=== PATIENT | female | born 1955 | race Two or more races ===

== ENCOUNTER 2022-03-31 06:44 | Emergency (ER) | payer MEDICARE, OTHER ==
[~2022-03-31] VITALS: Ht 154.9 cm; Wt 49.1 kg
[2022-03-31] MEDS ORDERED: morphine 4 MG/ML inj SYRINge IV PRN (06:50)
[2022-03-31] MEDS ORDERED: ondansetron/PF 4mg/2ml inj IV ONE (06:50)
[2022-03-31] MEDS ORDERED: normal saline 1000ML IV soln IVB ONE (06:50)
[2022-03-31 06:53] VITALS: BP 167/86
[2022-03-31 07:42] LABS: CLARITY,URINE CLEAR (Clear); COLOR,URINE BROWN (Yellow); GLUCOSE, URINE NEGATIVE (Neg); KETONES,URINE TRACE mg/dl (Neg); LEUKOCYTE ESTERASE ,URINE TRACE (Neg); OCCULT BLOOD,URINE NEGATIVE (Neg); PH,URINE 5.5 (4.8-8.0); PROTEIN,URINE 30 mg/dl (Neg)
[2022-03-31 07:44] LABS: BASOPHILS # (AUTO) 0.1 X10'3 (0-0.2); BASOPHILS % (AUTO) 1.1 % (0-1); EOSINOPHILS % (AUTO) 0.7 % (0-6); HEMATOCRIT 39.3 % (35.0-45.0); HEMOGLOBIN 12.8 g/dl (12.0-16.0); LYMPHOCYTES # (AUTO) 2.1 X10'3 (1.1-4.8); LYMPHOCYTES % (AUTO) 38.2 % (21-51); MEAN CORPUSCULAR HEMOGLOBIN 26.3 PG (27.0-31.0); MEAN CORPUSCULAR HGB CONC 32.6 g/dL (33.0-36.5); MEAN CORPUSCULAR VOLUME 80.8 FL (78-98); MEAN PLATELET VOLUME 9.7 FL (7.4-10.4); MONOCYTES # (AUTO) 0.3 X10'3 (0-0.9); MONOCYTES % (AUTO) 6.4 % (2-12); NEUTROPHILS # (AUTO) 2.9 X10'3 (1.8-7.7); NEUTROPHILS % (AUTO) 53.6 % (42-75); PLATELET COUNT 263 X10'3 (140-440); RED BLOOD COUNT 4.87 X10'6 (4.20-5.60); RED CELL DISTRIBUTION WIDTH 16.8 % (11.5-14.5); WHITE BLOOD COUNT 5.4 X10'3 (4.5-11.0)
[2022-03-31 07:51] LABS: UA COLLECTION TYPE CLN CATCH MIDSTREAM
[2022-03-31 07:56] LABS: MUCUS STRANDS MANY /LPF (Neg); NITRITES, URINE NEGATIVE (Neg); SQUAMOUS EPITHELIAL CELL,UR MANY /LPF (FEW)
[2022-03-31 07:59] LABS: TRANSITIONAL EPI CELLS,URINE FEW /HPF
[2022-03-31 08:00] LABS: BACTERIA,URINE FEW /HPF (Neg); RBC,URINE 0-2 /HPF (0-2)
[2022-03-31 08:04] LABS: ALANINE AMINOTRANSFERASE 13 U/L (12-78); ALBUMIN 4.3 G/DL (3.4-5.0); ALBUMIN/GLOBULIN RATIO 1.1 (1.1-1.5); ALKALINE PHOSPHATASE 71 IU/L (46-116); ANION GAP 13 (8-16); ASPARTATE AMINO TRANSFERASE 17 U/L (10-37); BILIRUBIN,TOTAL 0.3 MG/DL (0.1-1.0); BLOOD UREA NITROGEN 18 MG/DL (7-18); BUN/CREATININE RATIO 24.3 (6.6-38.0); CALCIUM 9.5 MG/DL (8.5-10.1); CHLORIDE 107 MMOL/L (99-107); CREATININE 0.74 MG/DL (0.40-0.90); GLUCOSE 121 MG/DL (70-104); LIPASE 86 U/L (73-393); SODIUM 144 MMOL/L (135-145); TOTAL CARBON DIOXIDE 24.1 MMOL/L (24-32); TOTAL PROTEIN 8.2 G/DL (6.4-8.2); eGFR 79 ML/MIN
[2022-03-31] MEDS ORDERED: POTASSIUM BICARB 20meq eff tab 20 MEQ TABLET.EFF PO ONE ×2 (08:15)
== END 2022-03-31 09:07 | disposition home or self-care (01) ==
LOC: ER 06:46
DX: E87.6 Hypokalemia (principal); R10.32 Left lower quadrant pain; F31.9 Bipolar disorder, unspecified; Z88.5 Allergy status to narcotic agent
CPT/HCPCS: 36415; 74176; 80053; 81001; 83690; 85025; 99284

== ENCOUNTER 2022-04-07 20:45 | Emergency (ER) | payer MEDICARE, OTHER ==
[~2022-04-07] VITALS: Ht 154.9 cm; Wt 50.0 kg
[2022-04-07] MEDS ORDERED: OLANZapine 2.5MG tablet PO STA (21:08)
[2022-04-07] MEDS ORDERED: QUEtiapine 25mg tablet PO STA (21:08)
[2022-04-07 21:32] LABS: CLARITY,URINE SLIGHTLY CLOUDY (Clear); GLUCOSE, URINE 100 mg/dl (Neg); KETONES,URINE 15 mg/dl (Neg); LEUKOCYTE ESTERASE ,URINE TRACE (Neg); NITRITES, URINE NEGATIVE (Neg); OCCULT BLOOD,URINE NEGATIVE (Neg); PH,URINE 6.5 (4.8-8.0); PROTEIN,URINE 100 mg/dl (Neg); UROBILINOGEN,URINE >=8.0 E.U/dL (0.2-1.0)
[2022-04-07 21:36] LABS: COLOR,URINE DARK YELLOW (Yellow); UA COLLECTION TYPE CLN CATCH MIDSTREAM
[2022-04-07 21:40] LABS: BACTERIA,URINE FEW /HPF (Neg); RBC,URINE 0-2 /HPF (0-2); SQUAMOUS EPITHELIAL CELL,UR FEW /LPF (FEW)
[2022-04-07 21:41] LABS: AMORPHOUS PHOSPHATES 1+; CAL OXALATE CRYSTALS 1+ /HPF (NEGATIVE); FINE GRANULAR CAST 0-3 /LPF (NEGATIVE); MUCUS STRANDS FEW /LPF (Neg); TRANSITIONAL EPI CELLS,URINE FEW /HPF
[2022-04-07 21:48] LABS: URINE AMPHETAMINE SCREEN NEGATIVE (Neg); URINE BARBITUATE SCREEN NEGATIVE (Neg); URINE BENZODIAZEPINES SCREEN NEGATIVE (Neg); URINE CANNABINOID SCREEN POSITIVE (Neg); URINE COCAINE SCREEN NEGATIVE (Neg); URINE METHADONE SCREEN NEGATIVE (Neg); URINE OPIATE SCREEN NEGATIVE (Neg); URINE PHENCYCLIDINE SCREEN NEGATIVE (Neg)
[2022-04-07 21:49] LABS: BASOPHILS # (AUTO) 0.1 X10'3 (0-0.2); BASOPHILS % (AUTO) 1.2 % (0-1); EOSINOPHILS % (AUTO) 0.5 % (0-6); HEMATOCRIT 39.1 % (35.0-45.0); HEMOGLOBIN 12.7 g/dl (12.0-16.0); LYMPHOCYTES # (AUTO) 1.9 X10'3 (1.1-4.8); LYMPHOCYTES % (AUTO) 36.9 % (21-51); MEAN CORPUSCULAR HEMOGLOBIN 26.5 PG (27.0-31.0); MEAN CORPUSCULAR HGB CONC 32.4 g/dL (33.0-36.5); MEAN CORPUSCULAR VOLUME 81.5 FL (78-98); MEAN PLATELET VOLUME 9.5 FL (7.4-10.4); MONOCYTES # (AUTO) 0.3 X10'3 (0-0.9); MONOCYTES % (AUTO) 5.3 % (2-12); NEUTROPHILS # (AUTO) 2.9 X10'3 (1.8-7.7); NEUTROPHILS % (AUTO) 56.1 % (42-75); PLATELET COUNT 222 X10'3 (140-440); RED CELL DISTRIBUTION WIDTH 18.7 % (11.5-14.5); WHITE BLOOD COUNT 5.2 X10'3 (4.5-11.0)
[2022-04-07] MEDS ORDERED: cephalexin 250mg capsule PO SCH (22:00)
[2022-04-07 22:02] LABS: ALANINE AMINOTRANSFERASE 29 U/L (12-78); ALBUMIN 4.1 G/DL (3.4-5.0); ALBUMIN/GLOBULIN RATIO 1.1 (1.1-1.5); ALKALINE PHOSPHATASE 70 IU/L (46-116); ANION GAP 11 (8-16); ASPARTATE AMINO TRANSFERASE 20 U/L (10-37); BILIRUBIN,TOTAL 0.7 MG/DL (0.1-1.0); BLOOD UREA NITROGEN 13 MG/DL (7-18); BUN/CREATININE RATIO 18.3 (6.6-38.0); CALCIUM 9.6 MG/DL (8.5-10.1); CHLORIDE 106 MMOL/L (99-107); CREATININE 0.71 MG/DL (0.40-0.90); GLUCOSE 106 MG/DL (70-104); POTASSIUM 3.3 MMOL/L (3.5-5.1); SODIUM 143 MMOL/L (135-145); TOTAL CARBON DIOXIDE 26.5 MMOL/L (24-32); TOTAL PROTEIN 7.8 G/DL (6.4-8.2); eGFR 83 ML/MIN
[2022-04-07 22:18] LABS: ETHANOL < 0.010 GM/DL (0.0-0.010)
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
--- NOTE | 2022-04-07 23:20 | NUR ---
PT takes HS medication without issue.
[2022-04-07 23:31] LABS: ANISOCYTOSIS 2+; PLATELET ESTIMATE NORMAL
[2022-04-08] MEDS ORDERED: LORazepam 1 MG tablet PO ONE (02:00)
--- NOTE | 2022-04-08 02:18 | NUR ---
Pt states she is anxious and cannot sleep, 2 mg ativan PO given
--- NOTE | 2022-04-08 04:00 | NUR ---
PT ASLEEP ON r SIDE RESPIRATIONS EVEN AND UNLABORED
--- NOTE | 2022-04-08 05:27 | NUR ---
PACKED FAXED TO [facility]
--- NOTE | 2022-04-08 08:00 | NUR ---
Patient calm and asleep. Patient refused breakfast. No complains. Patient not interacting or wanting to talk to Staff.
--- NOTE | 2022-04-08 11:02 | NUR ---
[facility] is at bedside evaluating the patient.
--- NOTE | 2022-04-08 12:00 | NUR ---
Patient refused lunch and went back to sleep.
--- NOTE | 2022-04-08 14:47 | NUR ---
Patient alseep. Rousable to voice. Patient was asked to eat her lunch again but she refused.
--- NOTE | 2022-04-08 18:56 | NUR ---
Patient is sleeping in a low fowlers position on her right side since shift change. She has covered self with a blanket.
--- NOTE | 2022-04-08 19:41 | NUR ---
Patient has repositioned self. She is sleeping on her left side.
--- NOTE | 2022-04-08 21:10 | NUR ---
Patient's daughter (Verito'joyce # [phone])
[2022-04-08] MEDS ORDERED: OLAN5TAB3 PO (21:18)
[2022-04-08] MEDS ORDERED: CLON0.1T2 PO (21:18)
[2022-04-08] MEDS ORDERED: CLON-528 PO ×2 (21:18→21:42)
[2022-04-08] MEDS ORDERED: AMLO5TAB4 PO (21:21)
[2022-04-08] MEDS ORDERED: MIRT30TA3 PO (21:21)
--- NOTE | 2022-04-08 21:43 | NUR ---
This senior medical writer was able to contact this patients daughter by landline. Med Red was completed based on information obtained from daughter who read patients medications off to this senior medical writer. Patient is from [place] and has no local pharmacy. Per daughter the medications listed are current. Patient verified medications too but did not know the doses herself.
[2022-04-08] MEDS: mirtazapine 15mg tablet PO SCH (22:19)
[2022-04-08] MEDS: clonazePAM 0.5mg tablet PO PRN (22:19)
[2022-04-08] MEDS: OLANZAPINE 5 MG TABLET PO SCH (22:19)
--- NOTE | 2022-04-08 23:04 | NUR ---
Patient is sleeping quietly, low fowlers in bed on her left side.
[2022-04-09] MEDS ORDERED: traZODone 50mg tablet PO ONE (00:20)
--- NOTE | 2022-04-09 00:33 | NUR ---
Patient awoke, ambulated to bathroom and voided. Patient tells this filing writer that she is still having a problem sleeping. States she normally taking Trazadone 200 mg QHS for sleep. This has not been verified. Patient will be given Trazadone 100 mg PO, okay'd by KELLIE LOW.
--- NOTE | 2022-04-09 01:50 | NUR ---
Patient is now sleeping on her right side. No distress.
--- NOTE | 2022-04-09 02:31 | NUR ---
Patient is up to bathroom to void and then back to bed.
--- NOTE | 2022-04-09 03:52 | NUR ---
Patient is sleeping quietly, supine in bed.
--- NOTE | 2022-04-09 05:24 | NUR ---
Patient is sleeping quietly. No distress.
--- NOTE | 2022-04-09 07:06 | NUR ---
Patient sleeping on her right side. No distress observed. Continue to monitor.
[2022-04-09] MEDS: amLODIPine 5mg tablet PO SCH (08:00)
--- NOTE | 2022-04-09 08:30 | NUR ---
Patient continues to sleep. Did not want to wake up to eat breakfast. No distress observed. Continue to monitor.
--- NOTE | 2022-04-09 10:37 | NUR ---
Patient adjusted to right side. No distress observed. Continue to monitor.
--- NOTE | 2022-04-09 12:17 | NUR ---
Patient's lunch at bedside. Patient is sleeping supine. No distress observed. Continue to monitor.
--- NOTE | 2022-04-09 13:40 | NUR ---
Patient came up to nurse's station and advised RN that she wants to leave. RN explained the 5150 process and patient kept repeating that she wants to go home. Patient then walks to the BR near the old security hallway and attempts to walk out. Tech Nayla stopped patient by blocking the exit and RN had to call Security to walk patient back to her bed. Security also explained to patient that if she goes home on a 5150, the police would go pick her up and bring her back. Patient verbalized understanding. Continue to monitor.
--- NOTE | 2022-04-09 14:05 | NUR ---
RN made copies for patient to color. Patient sitting in room and coloring adult coloring moshe pages. No distress observed. Continue to monitor.
--- NOTE | 2022-04-09 16:03 | NUR ---
Patient laying in bed and appears to be asleep. No distress observed. Continue to monitor.
--- NOTE | 2022-04-09 17:34 | NUR ---
Patient spoke to her daughter and son on the phone earlier. No distress observed. Continue to monitor.
--- NOTE | 2022-04-09 19:00 | NUR ---
The patient has been resting on her bed. She ate fairly well at dinner. She is focused on being able to go home. She complained of pain in her lower abdoemen and HAY Marquez made aware and orders received. She complained of constipation and prune juice given. She denies that she is hearing voices at this time. She denies that she is currently feeling suicidal. She denied anxiety. When asked how her mood was she stated "fair"
[2022-04-09] MEDS: OLANZAPINE 5 MG TABLET PO SCH (20:18)
[2022-04-09] MEDS: mirtazapine 15mg tablet PO SCH (20:18)
[2022-04-09] MEDS: acetaminophen 325mg tablet PO PRN (20:18)
--- NOTE | 2022-04-09 21:12 | NUR ---
The patient is pleasant and cooperative. She made a phone call to her daughter.
[2022-04-09] MEDS: clonazePAM 0.5mg tablet PO PRN (23:01)
--- NOTE | 2022-04-09 23:04 | NUR ---
The patient complained of not being able to sleep. PRN klonopin given
[2022-04-10] MEDS ORDERED: LORazepam 1 MG tablet PO ONE ×2 (00:10→22:30)
--- NOTE | 2022-04-10 00:10 | NUR ---
The patient locking herself in the bathroom and refusing to leave the bathroom because she can not sleep. Dr. Meadows made aware
--- NOTE | 2022-04-10 00:53 | NUR ---
The patient appears to be sleeping
--- NOTE | 2022-04-10 02:48 | NUR ---
The patient appears to be sleeping
--- NOTE | 2022-04-10 04:26 | NUR ---
The patient appears to be sleeping
--- NOTE | 2022-04-10 07:39 | NUR ---
The patient is resting on her bed.
[2022-04-10] MEDS: amLODIPine 5mg tablet PO SCH (07:59)
--- NOTE | 2022-04-10 09:30 | NUR ---
The patient appears to be sleeping
--- NOTE | 2022-04-10 10:31 | NUR ---
The patient appears to be sleeping
--- NOTE | 2022-04-10 12:09 | NUR ---
The patient is sitting up and eating her lunch. She does not appear to be responding to internal stimuli
--- NOTE | 2022-04-10 13:10 | NUR ---
The patient appears to be sleeping
--- NOTE | 2022-04-10 14:40 | NUR ---
The patient appears to be sleeping
--- NOTE | 2022-04-10 17:00 | NUR ---
The patient appears to be sleeping
[2022-04-10] MEDS: OLANZAPINE 5 MG TABLET PO SCH (21:19)
[2022-04-10] MEDS: mirtazapine 15mg tablet PO SCH (21:19)
--- NOTE | 2022-04-11 07:15 | NUR ---
Patient in bed awake and wants to watch TV. RN advised it was too early for T.V. but she could watch later. Patient verbalized understanding. All questions were answered. Continue to monitor.
[2022-04-11] MEDS: amLODIPine 5mg tablet PO SCH (08:32)
--- NOTE | 2022-04-11 08:40 | NUR ---
Patient awoken for medication and then ate breakfast. Patient is denying suicidal ideation and denied the same on Monday. Patient is calm and in no distress. Patient's 5150 is up around 1145 today. Continue to monitor.
--- NOTE | 2022-04-11 10:32 | NUR ---
Patient sleeping supine. No distress observed. Continue to monitor.
--- NOTE | 2022-04-11 10:59 | NUR ---
Matteo KELLEY, evaluating patient. No distress observed. Continue to monitor.
--- NOTE | 2022-04-11 11:50 | NUR ---
Matteo KELLEY, placed patient an another 5150. Patient is aware and not happy. Family does not believe patient would be safe at home. Continue to monitor.
--- NOTE | 2022-04-11 12:13 | NUR ---
Patient eating lunch. No distress observed. Continue to monitor.
[2022-04-11] MEDS: clonazePAM 0.5mg tablet PO PRN ×2 (12:30→21:38)
--- NOTE | 2022-04-11 12:39 | NUR ---
Patient c/o anxiety. RN gave patient 0.5 mg Clonazepam PO. Patient was already calm as Tech was setting up T.V. for patient. Continue to monitor.
--- NOTE | 2022-04-11 12:48 | NUR ---
RN called daughter to bring patient's glasses. Daughter stated she would be able to bring them tomorrow to the E. D. (Patient is watching a movie on the [employer]. ).
--- NOTE | 2022-04-11 14:35 | NUR ---
Patient laying in bed and watching Roku. No distress observed. Continue to monitor.
--- NOTE | 2022-04-11 16:32 | NUR ---
Patient laying supine and watching T.V. No distress observed. Continue to monitor.
--- NOTE | 2022-04-11 18:51 | NUR ---
Assumed care of pt. Pt is in bed resting and watching tv. Pt denies s/i states she is having trouble with insomnia lately and didnt sleep well last night.
[2022-04-11] MEDS: OLANZAPINE 5 MG TABLET PO SCH (20:30)
[2022-04-11] MEDS: mirtazapine 15mg tablet PO SCH (20:30)
--- NOTE | 2022-04-11 21:13 | NUR ---
pt is up to use the restroom and returned to bed.
--- NOTE | 2022-04-11 21:14 | NUR ---
Pt to [facility] office, per Preethi, no packets are out on patient because facilities are all currently reporting no beds.
--- NOTE | 2022-04-11 21:38 | NUR ---
Pt c/o feeling anxious 01/14. PRN Klonopin provided.
--- NOTE | 2022-04-11 22:50 | NUR ---
Pt is laying on her right side sleeping rr even and unlabored
--- NOTE | 2022-04-12 00:47 | NUR ---
Pt is laying on her right side rr even and unlabored appears to be asleep
--- NOTE | 2022-04-12 04:43 | NUR ---
Pt is laying on her back appears to be asleep. RR 16
--- NOTE | 2022-04-12 07:05 | NUR ---
Received Pt in bed sleeping w/o distress at this time.
[2022-04-12] MEDS: amLODIPine 5mg tablet PO SCH (08:40)
--- NOTE | 2022-04-12 09:10 | NUR ---
Pt took AM med and did not want to eat breakfast. Pt reports wanting to leave.
--- NOTE | 2022-04-12 11:24 | NUR ---
Patient sleeping on left side. No distress observed. Continue to monitor.
[2022-04-12] MEDS: clonazePAM 0.5mg tablet PO PRN ×2 (12:45→20:32)
--- NOTE | 2022-04-12 13:00 | NUR ---
Pt awake and wanting to leave. Pt appears anxious and agitated. Pt given Klonopin prn.
[2022-04-12] MEDS ORDERED: OLANZAPINE 5 MG TABLET PO ONE (13:10)
[2022-04-12] MEDS ORDERED: haloperidol lactate 5mg/ml inj IM ONE (14:35)
[2022-04-12] MEDS ORDERED: diphenhydrAMINE 25mg capsule PO ONE ×2 (14:35→23:55)
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
--- NOTE | 2022-04-12 16:36 | NUR ---
Pt in bed sleeping w/o distress.
--- NOTE | 2022-04-12 17:28 | NUR ---
Pt in bed sleeping w/o distress at this time.
--- NOTE | 2022-04-12 19:00 | NUR ---
Patient laying in bed and appears to be sleeping; no apparent distress. Even non labored respirations.
[2022-04-12] MEDS: mirtazapine 15mg tablet PO SCH (20:32)
[2022-04-12] MEDS: OLANZAPINE 5 MG TABLET PO SCH (20:32)
[2022-04-12] MEDS: acetaminophen 325mg tablet PO PRN (20:34)
--- NOTE | 2022-04-12 21:00 | NUR ---
Patient is pleasant and cooperative with care; compliant with medication. Patient c/o increased anxiety and generalized pain; PRN Clonazepam and Tylenol provided.
[2022-04-12] MEDS ORDERED: traZODone 50mg tablet PO ONE (23:55)
--- NOTE | 2022-04-13 | NUR ---
Patient was having difficulty sleeping and was becoming irritable. Spoke with Dr. Meadows and one time orders for Benadryl 50mg and Trazodone 100mg provided. Medication was effective and patient is sleeping with no apparent distress; even non labored respirations and self repositioning.
--- NOTE | 2022-04-13 03:11 | NUR ---
Patient is sitting up in bed; pleasant and cooperative.
--- NOTE | 2022-04-13 05:10 | NUR ---
Patient sleeping; no apparent distress. Even non labored respirations and self repositioning.
--- NOTE | 2022-04-13 05:26 | NUR ---
Patient woke up and went to the restroom vomiting; recieved one time order for Mariusz from Dr. Meadows.
[2022-04-13] MEDS ORDERED: ondansetron 4mg rapidly disintigrating tab PO ONE (05:35)
[2022-04-13] MEDS: amLODIPine 5mg tablet PO SCH (08:02)
--- NOTE | 2022-04-13 08:15 | NUR ---
Patient is pleasant and cooperative with care; compliant with medication. No N/V at this time. She denies SI, HI, A/VH but appears depressed; wants to be sleeping at all times.
--- NOTE | 2022-04-13 08:35 | NUR ---
Patient sleeping on right side. No distress observed. Continue to monitor.
--- NOTE | 2022-04-13 08:45 | NUR ---
Note lula in ED - 04/13/22 at 0939 by GRACE Patient sleeping supine. Respirations equal and nonlabored. No distress observed. Continue to monitor.
--- NOTE | 2022-04-13 08:54 | NUR ---
Patient was given breakfast, but refused to eat as she would prefer to sleep.
--- NOTE | 2022-04-13 10:34 | NUR ---
Patient continues to sleep. No distress observed. Continue to monitor.
--- NOTE | 2022-04-13 12:27 | NUR ---
Patient is reclining in bed and watching T.V. Patient just prior asked about when she would be re-evaluated. Continue to monitor.
--- NOTE | 2022-04-13 14:11 | NUR ---
Patient sleeping in bed prone. No distress observed. Continue to monitor.
[2022-04-13] MEDS: clonazePAM 0.5mg tablet PO PRN ×2 (16:10→20:11)
--- NOTE | 2022-04-13 16:16 | NUR ---
RN gave patient Clonazepam for anxiety. Patient was crying but soon calmed down. Continue to monitor.
--- NOTE | 2022-04-13 17:50 | NUR ---
Patient watching T.V. No distress observed. Continue to monitor.
--- NOTE | 2022-04-13 19:16 | NUR ---
The patient is resting on her bed watching TV. She stated that she has a good appetite. She denies hearing voices. She denies anxiety at this time. She is worried about not sleeping. She denies any thoughts to harm herself.
[2022-04-13] MEDS: mirtazapine 15mg tablet PO SCH (20:11)
[2022-04-13] MEDS: OLANZAPINE 5 MG TABLET PO SCH (20:11)
--- NOTE | 2022-04-13 21:32 | NUR ---
The patient is resting on her bed and watching TV
--- NOTE | 2022-04-13 23:00 | NUR ---
The patient appears to be sleeping
--- NOTE | 2022-04-14 00:27 | NUR ---
The patient appears to be sleeping
[2022-04-14] MEDS ORDERED: LORazepam 1 MG tablet PO ONE (01:40)
--- NOTE | 2022-04-14 01:45 | NUR ---
The patient is awake and stating she cannot sleep. The patient is sleeping during the day and is having difficulty sleeping at night. Dr. Meadows made aware and orders received.
--- NOTE | 2022-04-14 03:02 | NUR ---
The patient appears to be sleeping
--- NOTE | 2022-04-14 05:02 | NUR ---
The patient appears to be sleeping
[2022-04-14 05:59] VITALS: BP_DIAS 60
[2022-04-14 08:00] VITALS: BP_SYST 97
[2022-04-14] MEDS: amLODIPine 5mg tablet PO SCH (08:00)
[2022-04-14] MEDS ORDERED: MIRT-116 PO (12:08)
[2022-04-14] MEDS ORDERED: OLAN5TAB3 PO (12:08)
== END 2022-04-14 12:55 | disposition home or self-care (01) ==
LOC: ER 20:45
DX: R45.851 Suicidal ideations (principal); Z20.822 Contact with and (suspected) exposure to COVID-19; F20.9 Schizophrenia, unspecified; N39.0 Urinary tract infection, site not specified; F31.9 Bipolar disorder, unspecified; Z88.5 Allergy status to narcotic agent
CPT/HCPCS: 36415; 80053; 80305; 80320; 81001; 84443; 85008; 85025; 87635; 96372; 99285; C9803

== ENCOUNTER 2022-04-21 01:18 | Emergency (ER) | payer MEDICARE, OTHER ==
[~2022-04-21] VITALS: Ht 157.5 cm; Wt 52.3 kg
[~2022-04-21 01:18] MED LIST: AMLO5TAB4 PO; CLON-528 PO; CLON0.1T2 PO; MIRT-116 PO; MIRT30TA3 PO; OLAN5TAB3 PO
[2022-04-21 02:34] LABS: ALANINE AMINOTRANSFERASE 51 U/L (12-78); ALBUMIN 3.4 G/DL (3.4-5.0); ALBUMIN/GLOBULIN RATIO 0.9 (1.1-1.5); ALKALINE PHOSPHATASE 90 IU/L (46-116); ANION GAP 7 (8-16); ASPARTATE AMINO TRANSFERASE 24 U/L (10-37); BILIRUBIN,TOTAL 0.3 MG/DL (0.1-1.0); BLOOD UREA NITROGEN 10 MG/DL (7-18); BUN/CREATININE RATIO 17.5 (6.6-38.0); CALCIUM 8.6 MG/DL (8.5-10.1); CHLORIDE 103 MMOL/L (99-107); CREATININE 0.57 MG/DL (0.40-0.90); GLUCOSE 108 MG/DL (70-104); SODIUM 140 MMOL/L (135-145); TOTAL CARBON DIOXIDE 30.1 MMOL/L (24-32); eGFR > 90 ML/MIN
[2022-04-21 02:36] LABS: POTASSIUM 2.9 MMOL/L (3.5-5.1)
[2022-04-21] MEDS ORDERED: potassium Cl 20 mEq SR tablet PO STA (02:41)
[2022-04-21] MEDS ORDERED: POTA-207 PO (02:43)
[2022-04-21] MEDS ORDERED: GABA100C PO (02:43)
[2022-04-21 02:47] LABS: BASOPHILS % (AUTO) 0.9 % (0-1); EOSINOPHILS # (AUTO) 0.1 X10'3 (0-0.9); HEMATOCRIT 35.1 % (35.0-45.0); HEMOGLOBIN 11.6 g/dl (12.0-16.0); LYMPHOCYTES # (AUTO) 2.8 X10'3 (1.1-4.8); LYMPHOCYTES % (AUTO) 50.6 % (21-51); MEAN PLATELET VOLUME 8.9 FL (7.4-10.4); MONOCYTES # (AUTO) 0.4 X10'3 (0-0.9); MONOCYTES % (AUTO) 7.4 % (2-12); NEUTROPHILS # (AUTO) 2.2 X10'3 (1.8-7.7); NEUTROPHILS % (AUTO) 39.1 % (42-75); PLATELET COUNT 240 X10'3 (140-440); RED BLOOD COUNT 4.28 X10'6 (4.20-5.60); RED CELL DISTRIBUTION WIDTH 18.1 % (11.5-14.5); WHITE BLOOD COUNT 5.6 X10'3 (4.5-11.0)
[2022-04-21 02:57] VITALS: BP 133/60
== END 2022-04-21 02:58 | disposition home or self-care (01) ==
LOC: ER 01:19
DX: E87.6 Hypokalemia (principal); G62.9 Polyneuropathy, unspecified; F31.9 Bipolar disorder, unspecified; F20.9 Schizophrenia, unspecified; Z88.8 Allergy status to other drugs, medicaments and biological substances; Z79.899 Other long term (current) drug therapy; Z79.1 Long term (current) use of non-steroidal anti-inflammatories (NSAID)
CPT/HCPCS: 36415; 80053; 85025; 99283

== ENCOUNTER 2022-04-23 06:16 | Emergency (ER) | payer MEDICARE, OTHER ==
[~2022-04-23] VITALS: Ht 154.9 cm; Wt 50.0 kg
[~2022-04-23 06:16] MED LIST changes: +GABA100C PO; +POTA-207 PO
[2022-04-23 09:34] LABS: BASOPHILS # (AUTO) 0.1 X10'3 (0-0.2); BASOPHILS % (AUTO) 1.1 % (0-1); EOSINOPHILS # (AUTO) 0.1 X10'3 (0-0.9); EOSINOPHILS % (AUTO) 0.9 % (0-6); HEMATOCRIT 35.4 % (35.0-45.0); HEMOGLOBIN 11.7 g/dl (12.0-16.0); LYMPHOCYTES # (AUTO) 2.4 X10'3 (1.1-4.8); LYMPHOCYTES % (AUTO) 34.2 % (21-51); MEAN CORPUSCULAR HEMOGLOBIN 27.1 PG (27.0-31.0); MEAN CORPUSCULAR HGB CONC 33.1 g/dL (33.0-36.5); MEAN CORPUSCULAR VOLUME 81.9 FL (78-98); MEAN PLATELET VOLUME 8.4 FL (7.4-10.4); MONOCYTES # (AUTO) 0.4 X10'3 (0-0.9); MONOCYTES % (AUTO) 5.2 % (2-12); NEUTROPHILS # (AUTO) 4.2 X10'3 (1.8-7.7); NEUTROPHILS % (AUTO) 58.6 % (42-75); PLATELET COUNT 260 X10'3 (140-440); RED BLOOD COUNT 4.32 X10'6 (4.20-5.60); RED CELL DISTRIBUTION WIDTH 18.4 % (11.5-14.5); WHITE BLOOD COUNT 7.2 X10'3 (4.5-11.0)
[2022-04-23 09:49] LABS: ALANINE AMINOTRANSFERASE 38 U/L (12-78); ALBUMIN 3.4 G/DL (3.4-5.0); ALBUMIN/GLOBULIN RATIO 0.9 (1.1-1.5); ALKALINE PHOSPHATASE 85 IU/L (46-116); ANION GAP 7 (8-16); ASPARTATE AMINO TRANSFERASE 16 U/L (10-37); BILIRUBIN,TOTAL 0.2 MG/DL (0.1-1.0); BLOOD UREA NITROGEN 10 MG/DL (7-18); BUN/CREATININE RATIO 14.5 (6.6-38.0); CHLORIDE 103 MMOL/L (99-107); CREATININE 0.69 MG/DL (0.40-0.90); GLUCOSE 98 MG/DL (70-104); MAGNESIUM 1.6 MG/DL (1.5-2.4); POTASSIUM 4.2 MMOL/L (3.5-5.1); SODIUM 139 MMOL/L (135-145); TOTAL CARBON DIOXIDE 28.7 MMOL/L (24-32); TOTAL PROTEIN 7.4 G/DL (6.4-8.2); eGFR 85 ML/MIN
[2022-04-23 11:18] VITALS: BP 126/67
== END 2022-04-23 11:05 | disposition home or self-care (01) ==
LOC: ER 06:17
DX: R20.0 Anesthesia of skin (principal); R11.0 Nausea; R19.7 Diarrhea, unspecified; I10 Essential (primary) hypertension; F31.9 Bipolar disorder, unspecified; F20.9 Schizophrenia, unspecified; Z88.8 Allergy status to other drugs, medicaments and biological substances; Z79.899 Other long term (current) drug therapy
CPT/HCPCS: 36415; 80053; 82607; 83735; 85025; 86592; 99283

== ENCOUNTER 2022-05-06 19:28 | Emergency (ER) | payer MEDICARE, OTHER ==
[~2022-05-06] VITALS: Ht 154.9 cm; Wt 50.0 kg
[2022-05-06 20:17] VITALS: BP 156/98
--- NOTE | 2022-05-06 20:23 | NUR ---
patient to room 18.
[2022-05-06 20:27] LABS: ALANINE AMINOTRANSFERASE 16 U/L (12-78); ALBUMIN 4.7 G/DL (3.4-5.0); ALBUMIN/GLOBULIN RATIO 1.3 (1.1-1.5); ALKALINE PHOSPHATASE 69 IU/L (46-116); ANION GAP 29 (8-16); ASPARTATE AMINO TRANSFERASE 15 U/L (10-37); BILIRUBIN,TOTAL 0.5 MG/DL (0.1-1.0); BLOOD UREA NITROGEN 14 MG/DL (7-18); BUN/CREATININE RATIO 15.4 (6.6-38.0); CALCIUM 9.9 MG/DL (8.5-10.1); CHLORIDE 101 MMOL/L (99-107); CREATININE 0.91 MG/DL (0.40-0.90); ETHANOL 0.128 GM/DL (0.0-0.010); GLUCOSE 87 MG/DL (70-104); SODIUM 141 MMOL/L (135-145); TOTAL PROTEIN 8.3 G/DL (6.4-8.2); eGFR 62 ML/MIN
[2022-05-06 20:28] LABS: BASOPHILS # (AUTO) 0.1 X10'3 (0-0.2); EOSINOPHILS % (AUTO) 0.1 % (0-6); LYMPHOCYTES # (AUTO) 1.8 X10'3 (1.1-4.8); MEAN PLATELET VOLUME 9.7 FL (7.4-10.4); MONOCYTES # (AUTO) 0.3 X10'3 (0-0.9)
[2022-05-06 20:29] LABS: HEMATOCRIT 39.2 % (35.0-45.0); HEMOGLOBIN 12.8 g/dl (12.0-16.0); LYMPHOCYTES % (AUTO) 25.9 % (21-51); MEAN CORPUSCULAR HEMOGLOBIN 27.2 PG (27.0-31.0); MEAN CORPUSCULAR HGB CONC 32.7 g/dL (33.0-36.5); MEAN CORPUSCULAR VOLUME 83.1 FL (78-98); MONOCYTES % (AUTO) 3.8 % (2-12); NEUTROPHILS # (AUTO) 4.8 X10'3 (1.8-7.7); NEUTROPHILS % (AUTO) 69.2 % (42-75); PLATELET COUNT 230 X10'3 (140-440); RED BLOOD COUNT 4.72 X10'6 (4.20-5.60); RED CELL DISTRIBUTION WIDTH 18.6 % (11.5-14.5); WHITE BLOOD COUNT 6.9 X10'3 (4.5-11.0)
[2022-05-06 20:34] LABS: POTASSIUM 2.9 MMOL/L (3.5-5.1)
[2022-05-06 20:35] LABS: TOTAL CARBON DIOXIDE 11.5 MMOL/L (24-32)
[2022-05-06] MEDS ORDERED: potassium Cl 20 mEq SR tablet PO STA ×2 (21:09)
--- NOTE | 2022-05-06 22:19 | NUR ---
PO MED GIVEN
[2022-05-06] MEDS ORDERED: LORazepam 0.5 MG tablet PO ONE (22:40)
[2022-05-06 22:45] LABS: CLARITY,URINE SLIGHTLY CLOUDY (Clear); GLUCOSE, URINE NEGATIVE (Neg); KETONES,URINE 40 mg/dl (Neg); LEUKOCYTE ESTERASE ,URINE NEGATIVE (Neg); NITRITES, URINE NEGATIVE (Neg); OCCULT BLOOD,URINE NEGATIVE (Neg); PH,URINE 5.5 (4.8-8.0); PROTEIN,URINE 30 mg/dl (Neg); UROBILINOGEN,URINE 0.2 E.U/dL (0.2-1.0)
[2022-05-06 22:52] LABS: COLOR,URINE DARK YELLOW (Yellow); UA COLLECTION TYPE CLN CATCH MIDSTREAM
[2022-05-06 22:54] LABS: BACTERIA,URINE FEW /HPF (Neg); MUCUS STRANDS MANY /LPF (Neg); RBC,URINE NONE SEEN /HPF (0-2); SQUAMOUS EPITHELIAL CELL,UR MANY /LPF (FEW)
[2022-05-06 22:55] LABS: TRANSITIONAL EPI CELLS,URINE MODERATE /HPF
[2022-05-06 23:10] LABS: URINE AMPHETAMINE SCREEN NEGATIVE (Neg); URINE BARBITUATE SCREEN NEGATIVE (Neg); URINE BENZODIAZEPINES SCREEN NEGATIVE (Neg); URINE CANNABINOID SCREEN NEGATIVE (Neg); URINE COCAINE SCREEN NEGATIVE (Neg); URINE METHADONE SCREEN NEGATIVE (Neg); URINE OPIATE SCREEN NEGATIVE (Neg); URINE PHENCYCLIDINE SCREEN NEGATIVE (Neg)
[2022-05-16] MEDS ORDERED: GABA100C PO (16:49)
[2022-05-16] MEDS ORDERED: CLON0.1T2 PO (16:49)
[2022-05-16] MEDS ORDERED: POTA-207 PO (16:49)
[2022-05-16] MEDS ORDERED: OLAN2.5T3 PO (16:57)
[2022-05-25] MEDS ORDERED: MIRT30TA3 PO ×2 (16:31)
[2022-05-25] MEDS ORDERED: CLON0.1T2 PO ×2 (16:31)
[2022-05-25] MEDS ORDERED: GABA-530 PO ×2 (16:31)
[2022-05-25] MEDS ORDERED: AMLO5TAB4 PO ×2 (16:31)
[2022-05-25] MEDS ORDERED: QUET100T34 PO ×2 (16:31)
[2022-05-25] MEDS ORDERED: OLAN5TAB75 PO ×2 (16:32)
[2022-05-25] MEDS ORDERED: OLAN10TA73 PO ×4 (16:32→16:34)
== END 2022-05-06 22:59 | disposition home or self-care (01) ==
LOC: ER 19:28
DX: F10.129 Alcohol abuse with intoxication, unspecified (principal); Y90.9 Presence of alcohol in blood, level not specified; E87.6 Hypokalemia
CPT/HCPCS: 36415; 80053; 80305; 80320; 81001; 85025; 93005; 99284

== ENCOUNTER 2022-05-11 02:11 | Emergency (ER) | payer MEDICARE, OTHER ==
[~2022-05-11] VITALS: Ht 154.9 cm; Wt 45.2 kg
[2022-05-11 03:13] LABS: BASOPHILS % (AUTO) 0.7 % (0-1); EOSINOPHILS # (AUTO) 0.1 X10'3 (0-0.9); HEMATOCRIT 37.3 % (35.0-45.0); HEMOGLOBIN 12.4 g/dl (12.0-16.0); LYMPHOCYTES # (AUTO) 3.6 X10'3 (1.1-4.8); LYMPHOCYTES % (AUTO) 57.5 % (21-51); MEAN CORPUSCULAR HEMOGLOBIN 27.7 PG (27.0-31.0); MEAN CORPUSCULAR HGB CONC 33.4 g/dL (33.0-36.5); MEAN PLATELET VOLUME 9.3 FL (7.4-10.4); MONOCYTES # (AUTO) 0.4 X10'3 (0-0.9); MONOCYTES % (AUTO) 6.3 % (2-12); NEUTROPHILS # (AUTO) 2.2 X10'3 (1.8-7.7); NEUTROPHILS % (AUTO) 34.5 % (42-75); PLATELET COUNT 189 X10'3 (140-440); RED BLOOD COUNT 4.49 X10'6 (4.20-5.60); RED CELL DISTRIBUTION WIDTH 19.2 % (11.5-14.5); WHITE BLOOD COUNT 6.3 X10'3 (4.5-11.0)
[2022-05-11 03:23] LABS: ALANINE AMINOTRANSFERASE 26 U/L (12-78); ALBUMIN 4.5 G/DL (3.4-5.0); ALBUMIN/GLOBULIN RATIO 1.4 (1.1-1.5); ALKALINE PHOSPHATASE 72 IU/L (46-116); ANION GAP 11 (8-16); ASPARTATE AMINO TRANSFERASE 21 U/L (10-37); BILIRUBIN,TOTAL 0.7 MG/DL (0.1-1.0); BLOOD UREA NITROGEN 29 MG/DL (7-18); BUN/CREATININE RATIO 28.4 (6.6-38.0); CALCIUM 9.9 MG/DL (8.5-10.1); CHLORIDE 106 MMOL/L (99-107); CREATININE 1.02 MG/DL (0.40-0.90); GLUCOSE 98 MG/DL (70-104); LIPASE 105 U/L (73-393); POTASSIUM 3.6 MMOL/L (3.5-5.1); SODIUM 141 MMOL/L (135-145); TOTAL CARBON DIOXIDE 24.1 MMOL/L (24-32); TOTAL PROTEIN 7.8 G/DL (6.4-8.2); eGFR 54 ML/MIN
[2022-05-11] MEDS ORDERED: clonazePAM 1mg tablet PO ONE (04:05)
[2022-05-11] MEDS ORDERED: ketorolac trometh. 30mg/ml inj. IM ONE (04:05)
[2022-05-11 04:24] VITALS: BP 147/81
[2022-05-11 04:52] LABS: ANISOCYTOSIS 2+; PLATELET ESTIMATE NORMAL
[2022-05-13] MEDS ORDERED: CLON0.1T2 PO (22:42)
[2022-05-13] MEDS ORDERED: GABA100C PO (22:42)
[2022-05-13] MEDS ORDERED: OLAN5TAB3 PO (22:42)
[2022-05-13] MEDS ORDERED: POTA-207 PO (22:42)
== END 2022-05-11 04:32 | disposition home or self-care (01) ==
LOC: ER 02:12
DX: R10.9 Unspecified abdominal pain (principal); I11.9 Hypertensive heart disease without heart failure; F31.9 Bipolar disorder, unspecified; J45.909 Unspecified asthma, uncomplicated; F20.9 Schizophrenia, unspecified; Z88.5 Allergy status to narcotic agent; Z79.899 Other long term (current) drug therapy
CPT/HCPCS: 36415; 80053; 83690; 85008; 85025; 96372; 99283; J1885

== ENCOUNTER 2022-05-13 22:15 | Emergency (ER) | payer MEDICARE, OTHER ==
[2022-05-13] MEDS ORDERED: OLANZapine 5mg rapidly disint. tablet PO ONE (22:40)
[2022-05-13] MEDS ORDERED: gabapentin 100mg capsule PO ONE (22:40)
[2022-05-13] MEDS ORDERED: proMETHazine 25mg tablet PO ONE (22:40)
[2022-05-13] MEDS ORDERED: GABA100C PO ×2 (22:42)
[2022-05-13] MEDS ORDERED: CLON0.1T2 PO ×2 (22:42)
[2022-05-13] MEDS ORDERED: POTA-207 PO ×2 (22:42)
[2022-05-13] MEDS ORDERED: OLAN5TAB3 PO ×2 (22:42)
[2022-05-13] MEDS ORDERED: ketorolac trometh inj. 60 MG/2 ML VIAL IM ONE (22:45)
[2022-05-16] MEDS ORDERED: GABA100C PO (16:49)
[2022-05-16] MEDS ORDERED: POTA-207 PO (16:49)
[2022-05-16] MEDS ORDERED: CLON0.1T2 PO (16:49)
[2022-05-16] MEDS ORDERED: OLAN2.5T3 PO (16:57)
== END 2022-05-13 23:25 | disposition home or self-care (01) ==
LOC: ER 22:15
DX: S00.83XA Contusion of other part of head, initial encounter (principal); R10.12 Left upper quadrant pain; G89.29 Other chronic pain; I10 Essential (primary) hypertension; J45.909 Unspecified asthma, uncomplicated; F31.9 Bipolar disorder, unspecified; F20.9 Schizophrenia, unspecified; Z72.89 Other problems related to lifestyle; Z79.899 Other long term (current) drug therapy; W19.XXXA Unspecified fall, initial encounter; Y93.89 Activity, other specified; Y99.8 Other external cause status
CPT/HCPCS: 70450; 96372; 99284; J1885; Q0169

== ENCOUNTER 2022-05-14 10:06 | Emergency (ER) | payer MEDICARE, OTHER ==
[2022-05-16] MEDS ORDERED: CLON0.1T2 PO (16:49)
[2022-05-16] MEDS ORDERED: POTA-207 PO (16:49)
[2022-05-16] MEDS ORDERED: GABA100C PO (16:49)
[2022-05-16] MEDS ORDERED: OLAN2.5T3 PO (16:57)
== END 2022-05-14 10:17 | disposition left against medical advice (07) ==
LOC: ER 10:06
DX: R10.84 Generalized abdominal pain (principal); Z53.21 Procedure and treatment not carried out due to patient leaving prior to being seen by health care provider

== ENCOUNTER 2022-05-28 17:48 | Emergency (ER) | payer MEDICARE, MEDICAID ==
[~2022-05-28] VITALS: Ht 157.5 cm; Wt 45.0 kg
[~2022-05-28 17:48] MED LIST changes: -CLON-528 PO; +GABA-530 PO; -GABA100C PO; -MIRT-116 PO; +OLAN10TA73 PO; -OLAN5TAB3 PO; +OLAN5TAB75 PO; -POTA-207 PO; +QUET100T34 PO
[2022-05-28 19:18] LABS: BASOPHILS # (AUTO) 0.1 X10'3 (0-0.2); BASOPHILS % (AUTO) 1.7 % (0-1); EOSINOPHILS % (AUTO) 0.6 % (0-6); HEMOGLOBIN 10.5 g/dl (12.0-16.0); LYMPHOCYTES # (AUTO) 1.6 X10'3 (1.1-4.8); LYMPHOCYTES % (AUTO) 32.3 % (21-51); MEAN CORPUSCULAR HEMOGLOBIN 28.1 PG (27.0-31.0); MEAN CORPUSCULAR VOLUME 82.7 FL (78-98); MEAN PLATELET VOLUME 8.6 FL (7.4-10.4); MONOCYTES # (AUTO) 0.4 X10'3 (0-0.9); MONOCYTES % (AUTO) 7.9 % (2-12); NEUTROPHILS # (AUTO) 2.9 X10'3 (1.8-7.7); NEUTROPHILS % (AUTO) 57.5 % (42-75); PLATELET COUNT 188 X10'3 (140-440); RED BLOOD COUNT 3.75 X10'6 (4.20-5.60); WHITE BLOOD COUNT 5.1 X10'3 (4.5-11.0)
--- NOTE | 2022-05-28 19:27 | NUR ---
Pt resting in bed. No distress. Bed in low, locked position. Call light within reach.
[2022-05-28 19:35] LABS: ALANINE AMINOTRANSFERASE 136 U/L (12-78); ALBUMIN 3.8 G/DL (3.4-5.0); ALBUMIN/GLOBULIN RATIO 1.3 (1.1-1.5); ALKALINE PHOSPHATASE 103 IU/L (46-116); ANION GAP 10 (8-16); ASPARTATE AMINO TRANSFERASE 75 U/L (10-37); BILIRUBIN,TOTAL 0.4 MG/DL (0.1-1.0); BLOOD UREA NITROGEN 13 MG/DL (7-18); BUN/CREATININE RATIO 17.6 (6.6-38.0); CALCIUM 8.8 MG/DL (8.5-10.1); CHLORIDE 107 MMOL/L (99-107); CREATININE 0.74 MG/DL (0.40-0.90); GLUCOSE 87 MG/DL (70-104); SODIUM 143 MMOL/L (135-145); TOTAL CARBON DIOXIDE 26.1 MMOL/L (24-32); TOTAL PROTEIN 6.7 G/DL (6.4-8.2); eGFR 79 ML/MIN
[2022-05-28 19:38] LABS: ETHANOL < 0.010 GM/DL (0.0-0.010)
[2022-05-28] MEDS ORDERED: GABA-530 PO (21:13)
[2022-05-28] MEDS ORDERED: OLAN10TA21 PO (21:16)
[2022-05-28] MEDS ORDERED: POTA-206 PO (21:18)
[2022-05-28] MEDS ORDERED: AMLO5TAB4 PO (21:20)
[2022-05-28] MEDS ORDERED: QUET-1 PO (21:23)
[2022-05-28] MEDS ORDERED: MIRT-116 PO (21:24)
[2022-05-28] MEDS ORDERED: OLAN5TAB3 PO ×2 (21:27→21:30)
[2022-05-28 21:28] LABS: URINE AMPHETAMINE SCREEN NEGATIVE (Neg); URINE BARBITUATE SCREEN NEGATIVE (Neg); URINE BENZODIAZEPINES SCREEN NEGATIVE (Neg); URINE CANNABINOID SCREEN NEGATIVE (Neg); URINE COCAINE SCREEN NEGATIVE (Neg); URINE METHADONE SCREEN NEGATIVE (Neg); URINE OPIATE SCREEN NEGATIVE (Neg); URINE PHENCYCLIDINE SCREEN NEGATIVE (Neg)
[2022-05-28] MEDS ORDERED: CLON0.1T2 PO (21:33)
[2022-05-28 21:42] LABS: ANISOCYTOSIS 2+; ELLIPTOCYTES FEW; PLATELET ESTIMATE NORMAL
--- NOTE | 2022-05-28 22:06 | NUR ---
Patient is sleeping quietly on her left side. Her medication rec is completed.
--- NOTE | 2022-05-28 23:16 | NUR ---
Patient is sleeping quietly on her left side.
[2022-05-29] MEDS ORDERED: cloNIDine 0.1 mg tablet PO ONE (01:00)
[2022-05-29] MEDS ORDERED: gabapentin 100mg capsule PO ONE (01:00)
[2022-05-29] MEDS ORDERED: olanzapine 10mg tablet PO ONE ×2 (01:00→08:25)
[2022-05-29] MEDS ORDERED: quetiapine 100mg tablet PO ONE (01:00)
[2022-05-29] MEDS ORDERED: mirtazapine 15mg tablet PO ONE (01:15)
--- NOTE | 2022-05-29 01:36 | NUR ---
Patient took NOC med's. She is now attempting to sleep.
--- NOTE | 2022-05-29 04:12 | NUR ---
Patient sleeping quietly on her right side. No distress.
[2022-05-29 05:11] VITALS: BP_DIAS 76
--- NOTE | 2022-05-29 06:37 | NUR ---
Patient awake and drinking juice. No distress observed. Continue to monitor.
[2022-05-29 07:01] LABS: CLARITY,URINE CLEAR (Clear); COLOR,URINE YELLOW (Yellow); GLUCOSE, URINE NEGATIVE (Neg); KETONES,URINE NEGATIVE (Neg); LEUKOCYTE ESTERASE ,URINE NEGATIVE (Neg); NITRITES, URINE NEGATIVE (Neg); OCCULT BLOOD,URINE NEGATIVE (Neg); PROTEIN,URINE NEGATIVE (Neg); UROBILINOGEN,URINE 0.2 E.U/dL (0.2-1.0)
[2022-05-29 07:09] LABS: UA COLLECTION TYPE CLN CATCH MIDSTREAM
[2022-05-29] MEDS ORDERED: OLANZAPINE 5 MG TABLET PO PRN (08:15)
--- NOTE | 2022-05-29 08:17 | NUR ---
Patient eating breakfast. No distress observed. Continue to monitor.
[2022-05-29] MEDS ORDERED: amLODIPine 5mg tablet PO SCH (08:18)
[2022-05-29] MEDS ORDERED: olanzapine 10mg tablet PO SCH ×2 (08:20→08:21)
[2022-05-29 08:52] VITALS: BP_SYST 117
--- NOTE | 2022-05-29 10:07 | NUR ---
Patient sleeping. No distress observed. Continue to monitor.
--- NOTE | 2022-05-29 10:32 | NUR ---
Matteo KELLEY, evaluating patient. No distress observed. Continue to monitor.
[2022-05-29] MEDS ORDERED: OLANZAPINE 5 MG TABLET PO SCH (12:00)
--- NOTE | 2022-05-29 12:16 | NUR ---
Patient eating lunch. No distress observed. Continue to monitor.
[2022-05-29] MEDS ORDERED: gabapentin 100mg capsule PO SCH (13:00)
[2022-05-29] MEDS ORDERED: mirtazapine 15mg tablet PO SCH (21:00)
[2022-05-29] MEDS ORDERED: cloNIDine 0.1 mg tablet PO SCH (21:00)
[2022-05-29] MEDS ORDERED: quetiapine 100mg tablet PO SCH (21:00)
[2022-05-30] MEDS ORDERED: ATI1T PO (12:50)
== END 2022-05-29 15:17 | disposition home or self-care (01) ==
LOC: ER 17:49
DX: R45.851 Suicidal ideations (principal); Z20.822 Contact with and (suspected) exposure to COVID-19; F20.9 Schizophrenia, unspecified; I10 Essential (primary) hypertension; J45.909 Unspecified asthma, uncomplicated; F31.9 Bipolar disorder, unspecified; Z88.5 Allergy status to narcotic agent
CPT/HCPCS: 36415; 80053; 80305; 80320; 81003; 84443; 85008; 85025; 87811; 99284

== ENCOUNTER 2022-05-30 10:38 | Emergency (ER) | payer MEDICARE, OTHER ==
[~2022-05-30] VITALS: Ht 157.5 cm; Wt 45.0 kg
[~2022-05-30 10:38] MED LIST changes: +MIRT-116 PO; -MIRT30TA3 PO; +OLAN10TA21 PO; -OLAN10TA73 PO; +OLAN5TAB3 PO; -OLAN5TAB75 PO; +QUET-1 PO; -QUET100T34 PO
[2022-05-30 11:03] VITALS: BP 138/79
[2022-05-30] MEDS ORDERED: ATI1T PO (12:50)
[2022-05-30] MEDS ORDERED: LORazepam 1 MG tablet PO ONE (12:55)
== END 2022-05-30 13:08 | disposition home or self-care (01) ==
LOC: ER 10:39
DX: F41.9 Anxiety disorder, unspecified (principal); F20.9 Schizophrenia, unspecified; J45.909 Unspecified asthma, uncomplicated; F31.9 Bipolar disorder, unspecified; Z56.0 Unemployment, unspecified; Z88.5 Allergy status to narcotic agent; Z79.899 Other long term (current) drug therapy
CPT/HCPCS: 99283

== ENCOUNTER 2022-07-19 22:13 | Emergency (ER) | payer MEDICARE, OTHER ==
[~2022-07-19] VITALS: Ht 157.5 cm; Wt 54.5 kg
[~2022-07-19 22:13] MED LIST changes: +ATI1T PO
[2022-07-20 01:03] LABS: BASOPHILS # (AUTO) 0.1 X10'3 (0-0.2); EOSINOPHILS # (AUTO) 0.1 X10'3 (0-0.9); HEMATOCRIT 36.4 % (35.0-45.0); LYMPHOCYTES % (AUTO) 30.6 % (21-51); MEAN CORPUSCULAR HGB CONC 33.1 g/dL (33.0-36.5); MEAN CORPUSCULAR VOLUME 84.6 FL (78-98); MEAN PLATELET VOLUME 9.2 FL (7.4-10.4); MONOCYTES # (AUTO) 0.5 X10'3 (0-0.9); MONOCYTES % (AUTO) 6.9 % (2-12); NEUTROPHILS % (AUTO) 60.5 % (42-75); PLATELET COUNT 211 X10'3 (140-440); RED BLOOD COUNT 4.31 X10'6 (4.20-5.60); RED CELL DISTRIBUTION WIDTH 14.7 % (11.5-14.5); URINE HCG NEGATIVE (NEG); WHITE BLOOD COUNT 6.6 X10'3 (4.5-11.0)
[2022-07-20 01:12] LABS: URINE AMPHETAMINE SCREEN NEGATIVE (Neg); URINE BARBITUATE SCREEN NEGATIVE (Neg); URINE BENZODIAZEPINES SCREEN NEGATIVE (Neg); URINE CANNABINOID SCREEN NEGATIVE (Neg); URINE COCAINE SCREEN NEGATIVE (Neg); URINE METHADONE SCREEN NEGATIVE (Neg); URINE OPIATE SCREEN NEGATIVE (Neg); URINE PHENCYCLIDINE SCREEN NEGATIVE (Neg)
[2022-07-20 01:16] LABS: ALANINE AMINOTRANSFERASE 10 U/L (12-78); ALBUMIN 3.5 G/DL (3.4-5.0); ALBUMIN/GLOBULIN RATIO 0.9 (1.1-1.5); ALKALINE PHOSPHATASE 81 IU/L (46-116); ANION GAP 9 (8-16); ASPARTATE AMINO TRANSFERASE 13 U/L (10-37); BILIRUBIN,TOTAL 0.4 MG/DL (0.1-1.0); BLOOD UREA NITROGEN 15 MG/DL (7-18); BUN/CREATININE RATIO 28.3 (6.6-38.0); CALCIUM 9.3 MG/DL (8.5-10.1); CHLORIDE 104 MMOL/L (99-107); CREATININE 0.53 MG/DL (0.40-0.90); ETHANOL < 0.010 GM/DL (0.0-0.010); GLUCOSE 109 MG/DL (70-104); POTASSIUM 3.5 MMOL/L (3.5-5.1); SODIUM 138 MMOL/L (135-145); TOTAL CARBON DIOXIDE 25.3 MMOL/L (24-32); TOTAL PROTEIN 7.6 G/DL (6.4-8.2); eGFR > 90 ML/MIN
[2022-07-20 01:17] LABS: ACETAMINOPHEN < 2.0 UG/ML (10-30)
--- NOTE | 2022-07-20 02:19 | NUR ---
[facility] in [facility]
[2022-07-20] MEDS ORDERED: olanzapine PO (02:32)
--- NOTE | 2022-07-20 06:48 | NUR ---
report from renan conklin for continuation of care. pt is sleeping in position of comfort resp even unlabored. items of potential harm removed from room and pt within line of sight of nurses station.
[2022-07-20] MEDS ORDERED: amLODIPine 5mg tablet PO SCH (08:00)
[2022-07-20] MEDS ORDERED: OLANZAPINE 5 MG TABLET PO SCH (08:00)
--- NOTE | 2022-07-20 08:13 | NUR ---
pt awake but sleepy. ao3 denies si/hi and or visual/auditory hallucinations. resp even unlabored. denies cp/sob. skin w/d/i pink.
--- NOTE | 2022-07-20 08:25 | NUR ---
pt given safety tray and eating quietly. am meds given with no issue.
[2022-07-20] MEDS: gabapentin 100mg capsule PO SCH ×2 (08:32→13:33)
--- NOTE | 2022-07-20 08:37 | NUR ---
pt finished eating. all plastic utencils accounted for. pt remains calm cooperative no complaints.
--- NOTE | 2022-07-20 08:45 | NUR ---
Pt was brought over from main ED and placed in OF bed #24. Pt was calm/cooperative, ambulated independently.
--- NOTE | 2022-07-20 10:38 | NUR ---
Packet faxed to [facility]
--- NOTE | 2022-07-20 11:00 | NUR ---
One on one with patient to assess mental health. Pt was sleeping comfortably upon greeting. Stylist Assistant is familiar with patient from previous admit to [facility]. Pt reports she is still living with her daughter and when asked how it was going pt stated "It's going good." When asked about AH pt states "not too much," "just a little bit." Pt denies SI/HI. Pt states she has been taking her medication as her daughter administers them to her. Pt is unable to identify any stressors. Pt reports she has been having insomnia for the past two weeks. Tox screen negative, [place] level < 0.4.
--- NOTE | 2022-07-20 14:11 | NUR ---
DISCHARGE NOTE Patient was discharged from at 1340. Pt was A&Ox4. Pt left with all personal belongings. Pt has not kept appointments for MH services. Pt has a same day appointment with [facility] Access Team. Pt was discharged directly from [facility] ED to the Access Team. Pt attempted to tell driver/guide to take her home, however staff told jitney driver no alternative. Oracle Erp Architect reassured pt ACCESS would get her a ride home.
[2022-07-20 14:19] VITALS: BP 151/89
[2022-07-20] MEDS ORDERED: quetiapine 100mg tablet PO SCH (21:00)
[2022-07-20] MEDS ORDERED: mirtazapine 15mg tablet PO SCH (21:00)
[2022-07-20] MEDS ORDERED: cloNIDine 0.1 mg tablet PO SCH (21:00)
== END 2022-07-20 13:40 | disposition home or self-care (01) ==
LOC: ER 22:14
DX: R44.0 Auditory hallucinations (principal); Z20.822 Contact with and (suspected) exposure to COVID-19; I10 Essential (primary) hypertension; J45.909 Unspecified asthma, uncomplicated; F31.9 Bipolar disorder, unspecified; Z88.5 Allergy status to narcotic agent; Z56.0 Unemployment, unspecified
CPT/HCPCS: 36415; 80053; 80305; 80320; 80329; 81025; 85025; 87811; 99285

== ENCOUNTER 2022-08-21 19:23 | Emergency (ER) | payer MEDICARE, OTHER ==
[~2022-08-21] VITALS: Ht 154.9 cm; Wt 50.0 kg
[~2022-08-21 19:23] MED LIST changes: -OLAN10TA21 PO; -OLAN5TAB3 PO; +olanzapine PO
[2022-08-21 19:25] VITALS: BP 158/87
[2022-08-21] MEDS ORDERED: ketorolac trometh. 30mg/ml inj. IM ONE (20:35)
[2022-08-21] MEDS ORDERED: orphenadrine citrate 60mg/2ml inj. IM ONE (20:35)
[2022-08-21] MEDS ORDERED: CYCL-1 PO (20:37)
== END 2022-08-21 21:22 | disposition home or self-care (01) ==
LOC: ER 19:23
DX: S39.012A Strain of muscle, fascia and tendon of lower back, initial encounter (principal); I10 Essential (primary) hypertension; J45.909 Unspecified asthma, uncomplicated; F41.9 Anxiety disorder, unspecified; F31.9 Bipolar disorder, unspecified; F20.9 Schizophrenia, unspecified; G62.9 Polyneuropathy, unspecified; Z56.0 Unemployment, unspecified; Z72.89 Other problems related to lifestyle; Z79.899 Other long term (current) drug therapy; X58.XXXA Exposure to other specified factors, initial encounter; Y93.89 Activity, other specified; Y92.89 Other specified places as the place of occurrence of the external cause; Y99.8 Other external cause status
CPT/HCPCS: 96372; 99284; J1885; J2360

== ENCOUNTER 2022-09-15 01:06 | Emergency (ER) | payer MEDICARE, OTHER ==
[~2022-09-15] VITALS: Ht 154.9 cm; Wt 52.3 kg
[~2022-09-15 01:06] MED LIST changes: +CYCL-1 PO
[2022-09-15 02:48] LABS: CLARITY,URINE CLEAR (Clear); COLOR,URINE YELLOW (Yellow); GLUCOSE, URINE NEGATIVE (Neg); KETONES,URINE NEGATIVE (Neg); LEUKOCYTE ESTERASE ,URINE NEGATIVE (Neg); NITRITES, URINE NEGATIVE (Neg); OCCULT BLOOD,URINE NEGATIVE (Neg); PH,URINE 6.5 (4.8-8.0); PROTEIN,URINE NEGATIVE (Neg)
[2022-09-15 02:54] LABS: UA COLLECTION TYPE CLN CATCH MIDSTREAM
[2022-09-15 03:02] LABS: URINE AMPHETAMINE SCREEN NEGATIVE (Neg); URINE BARBITUATE SCREEN NEGATIVE (Neg); URINE BENZODIAZEPINES SCREEN NEGATIVE (Neg); URINE CANNABINOID SCREEN NEGATIVE (Neg); URINE COCAINE SCREEN NEGATIVE (Neg); URINE METHADONE SCREEN NEGATIVE (Neg); URINE OPIATE SCREEN NEGATIVE (Neg); URINE PHENCYCLIDINE SCREEN NEGATIVE (Neg)
[2022-09-15 03:23] LABS: BASOPHILS # (AUTO) 0.1 X10'3 (0-0.2); BASOPHILS % (AUTO) 0.8 % (0-1); EOSINOPHILS % (AUTO) 0.4 % (0-6); HEMATOCRIT 40.2 % (35.0-45.0); LYMPHOCYTES # (AUTO) 2.5 X10'3 (1.1-4.8); LYMPHOCYTES % (AUTO) 36.1 % (21-51); MEAN CORPUSCULAR HEMOGLOBIN 26.8 PG (27.0-31.0); MEAN CORPUSCULAR HGB CONC 32.5 g/dL (33.0-36.5); MEAN CORPUSCULAR VOLUME 82.5 FL (78-98); MEAN PLATELET VOLUME 9.6 FL (7.4-10.4); MONOCYTES # (AUTO) 0.5 X10'3 (0-0.9); MONOCYTES % (AUTO) 6.7 % (2-12); NEUTROPHILS # (AUTO) 3.8 X10'3 (1.8-7.7); PLATELET COUNT 246 X10'3 (140-440); RED BLOOD COUNT 4.87 X10'6 (4.20-5.60); RED CELL DISTRIBUTION WIDTH 15.8 % (11.5-14.5); WHITE BLOOD COUNT 6.9 X10'3 (4.5-11.0)
[2022-09-15 03:37] LABS: ALANINE AMINOTRANSFERASE 16 U/L (12-78); ALBUMIN 4.1 G/DL (3.4-5.0); ALKALINE PHOSPHATASE 83 IU/L (46-116); ANION GAP 13 (8-16); ASPARTATE AMINO TRANSFERASE 14 U/L (10-37); BILIRUBIN,TOTAL 0.6 MG/DL (0.1-1.0); BLOOD UREA NITROGEN 20 MG/DL (7-18); CALCIUM 9.9 MG/DL (8.5-10.1); CHLORIDE 103 MMOL/L (99-107); CREATININE 0.69 MG/DL (0.40-0.90); GLUCOSE 101 MG/DL (70-104); POTASSIUM 3.5 MMOL/L (3.5-5.1); SODIUM 139 MMOL/L (135-145); TOTAL CARBON DIOXIDE 23.5 MMOL/L (24-32); TOTAL PROTEIN 8.1 G/DL (6.4-8.2); eGFR 85 ML/MIN
--- NOTE | 2022-09-15 08:35 | NUR ---
tech faxed pt packet to [facility]
--- NOTE | 2022-09-15 09:03 | NUR ---
Patient arrived to bed 22 and immediately layed down on her right side and went to sleep. Patient remains sleeping at this time.
--- NOTE | 2022-09-15 09:49 | NUR ---
Patient received late breakfast tray, patient awoke and ate her breakfast and then returned to sleep.
--- NOTE | 2022-09-15 11:24 | NUR ---
[facility] here to evaluate patient.
--- NOTE | 2022-09-15 12:40 | NUR ---
Peer support person here to assist patient with her discharge and obtaining her medications.
[2022-09-15] MEDS ORDERED: HYDR100T27 PO (13:13)
[2022-09-15] MEDS ORDERED: OLAN10TA21 PO (13:13)
[2022-09-15 13:21] VITALS: BP 161/91
== END 2022-09-15 13:47 | disposition home or self-care (01) ==
LOC: ER 01:07
DX: R45.851 Suicidal ideations (principal); Z20.822 Contact with and (suspected) exposure to COVID-19
CPT/HCPCS: 36415; 80053; 80305; 81003; 84443; 85025; 87811; 99285

== ENCOUNTER 2022-10-06 16:06 | Emergency (ER) | payer MEDICARE, OTHER ==
[~2022-10-06] VITALS: Ht 157.5 cm; Wt 52.3 kg
[~2022-10-06 16:06] MED LIST changes: +HYDR100T27 PO; +OLAN10TA21 PO
[2022-10-06] MEDS ORDERED: TETanus/Pertussis (Acell)/Diphther VAC/PF (Tdap-Adult) 0.5ml syringe IMVAC ONE (18:10)
[2022-10-06 18:57] LABS: BASOPHILS # (AUTO) 0.1 X10'3 (0-0.2); BASOPHILS % (AUTO) 1.1 % (0-1); EOSINOPHILS % (AUTO) 0.4 % (0-6); HEMOGLOBIN 12.6 g/dl (12.0-16.0); LYMPHOCYTES # (AUTO) 2.1 X10'3 (1.1-4.8); LYMPHOCYTES % (AUTO) 32.6 % (21-51); MEAN CORPUSCULAR HEMOGLOBIN 27.5 PG (27.0-31.0); MEAN CORPUSCULAR HGB CONC 33.1 g/dL (33.0-36.5); MEAN CORPUSCULAR VOLUME 82.9 FL (78-98); MEAN PLATELET VOLUME 8.8 FL (7.4-10.4); MONOCYTES # (AUTO) 0.4 X10'3 (0-0.9); MONOCYTES % (AUTO) 5.9 % (2-12); NEUTROPHILS # (AUTO) 3.9 X10'3 (1.8-7.7); PLATELET COUNT 267 X10'3 (140-440); RED BLOOD COUNT 4.58 X10'6 (4.20-5.60); RED CELL DISTRIBUTION WIDTH 16.6 % (11.5-14.5); WHITE BLOOD COUNT 6.5 X10'3 (4.5-11.0)
[2022-10-06 19:13] LABS: ALANINE AMINOTRANSFERASE 26 U/L (12-78); ALBUMIN 3.9 G/DL (3.4-5.0); ALKALINE PHOSPHATASE 99 IU/L (46-116); ANION GAP 6 (8-16); ASPARTATE AMINO TRANSFERASE 22 U/L (10-37); BILIRUBIN,TOTAL 0.4 MG/DL (0.1-1.0); BLOOD UREA NITROGEN 13 MG/DL (7-18); CALCIUM 9.5 MG/DL (8.5-10.1); CHLORIDE 105 MMOL/L (99-107); CREATININE 0.59 MG/DL (0.40-0.90); GLUCOSE 87 MG/DL (70-104); POTASSIUM 3.8 MMOL/L (3.5-5.1); SODIUM 140 MMOL/L (135-145); TOTAL CARBON DIOXIDE 28.7 MMOL/L (24-32); TOTAL PROTEIN 7.9 G/DL (6.4-8.2); eGFR > 90 ML/MIN
[2022-10-06 19:24] LABS: ETHANOL < 0.010 GM/DL (0.0-0.010)
--- NOTE | 2022-10-06 21:12 | NUR ---
PT GIVEN A SANDWICH, CRACKERS, AND JUICE REQUESTED. ALEJANDRINA REEVES, CLEANING THE WOUND TO PTS LEFT ARM. PT IS NOW IN ER ROOM 14.
[2022-10-06 23:01] LABS: URINE HCG NEGATIVE (NEG)
[2022-10-06 23:09] LABS: URINE AMPHETAMINE SCREEN NEGATIVE (Neg); URINE BARBITUATE SCREEN NEGATIVE (Neg); URINE BENZODIAZEPINES SCREEN NEGATIVE (Neg); URINE CANNABINOID SCREEN NEGATIVE (Neg); URINE COCAINE SCREEN NEGATIVE (Neg); URINE METHADONE SCREEN NEGATIVE (Neg); URINE OPIATE SCREEN NEGATIVE (Neg); URINE PHENCYCLIDINE SCREEN NEGATIVE (Neg)
--- NOTE | 2022-10-06 23:53 | NUR ---
PT RESTING IN ER ROOM 14 ON THE GURNEY. PT DOES NOT APPEAR TO BE IN ANY DISTRESS AT THIS TIME.
--- NOTE | 2022-10-07 02:32 | NUR ---
PT RESTING IN BED. PT APPEARS TO BE ASLEEP. NO DISTRESS OBSERVED AT THIS TIME. RR ARE EQUAL AND UNLABORED.
--- NOTE | 2022-10-07 03:51 | NUR ---
PT CONTINUES TO SLEEP AT THIS TIME. PT DOES NOT APPEAR TO BE IN ANY DISTRESS.
--- NOTE | 2022-10-07 05:47 | NUR ---
PT APPEARS TO BE ASLEEP ON THE GURNEY IN ER ROOM 14. RR ARE EQUAL AND UNLABORED. NO APPARENT DISTRESS AT THIS TIME.
[2022-10-07 06:04] VITALS: BP 138/82
== END 2022-10-07 13:56 | disposition still patient (30) ==
LOC: ER 16:07
DX: S50.812A Abrasion of left forearm, initial encounter (principal); Z20.822 Contact with and (suspected) exposure to COVID-19; R45.851 Suicidal ideations; F10.10 Alcohol abuse, uncomplicated; Y90.9 Presence of alcohol in blood, level not specified; J45.909 Unspecified asthma, uncomplicated; F31.9 Bipolar disorder, unspecified; F20.9 Schizophrenia, unspecified; F17.200 Nicotine dependence, unspecified, uncomplicated; Z59.00 Homelessness unspecified; Z88.5 Allergy status to narcotic agent; Z79.899 Other long term (current) drug therapy; Z79.1 Long term (current) use of non-steroidal anti-inflammatories (NSAID); X78.8XXA Intentional self-harm by other sharp object, initial encounter; Y93.89 Activity, other specified; Y92.89 Other specified places as the place of occurrence of the external cause; Y99.8 Other external cause status
CPT/HCPCS: 36415; 80053; 80305; 80320; 81025; 84443; 85025; 87811; 90471; 90715; 99285

== ENCOUNTER 2022-10-11 20:30 | Emergency (ER) | payer MEDICARE, OTHER ==
[~2022-10-11] VITALS: Ht 157.5 cm; Wt 52.3 kg
[2022-10-12] MEDS ORDERED: acetaminophen 325mg tablet PO ONE (02:55)
[2022-10-12] MEDS ORDERED: ondansetron 4mg rapidly disintigrating tab PO ONE (02:55)
[2022-10-12] MEDS ORDERED: amoxicillin 250mg capsule PO ONE (02:55)
[2022-10-12] MEDS ORDERED: AMOX500C2 PO (02:57)
[2022-10-12 03:16] VITALS: BP 145/87
== END 2022-10-12 03:17 | disposition home or self-care (01) ==
LOC: ER 20:32
DX: H66.91 Otitis media, unspecified, right ear (principal); I10 Essential (primary) hypertension; J45.909 Unspecified asthma, uncomplicated; F31.9 Bipolar disorder, unspecified; Z88.5 Allergy status to narcotic agent; Z56.0 Unemployment, unspecified
CPT/HCPCS: 99284

== ENCOUNTER 2023-02-07 08:06 | Emergency (ER) | payer MEDICARE, MEDICAID ==
[~2023-02-07] VITALS: Ht 154.9 cm; Wt 63.2 kg
[2023-02-07 08:10] VITALS: BP 169/101
[2023-02-07] MEDS ORDERED: ibuprofen tablet 400 MG TABLET PO ONE (11:00)
[2023-02-07] MEDS ORDERED: ibuprofen 200mg tablet PO ONE (11:00)
[2023-02-07] MEDS ORDERED: LORazepam 1 MG tablet PO ONE (11:00)
[2023-02-07] MEDS ORDERED: CYCL-1 PO (11:05)
[2023-02-07] MEDS ORDERED: IBUP-1985 PO (11:05)
== END 2023-02-07 11:39 | disposition home or self-care (01) ==
LOC: ER 08:07
DX: S16.1XXA Strain of muscle, fascia and tendon at neck level, initial encounter (principal); I10 Essential (primary) hypertension; J45.909 Unspecified asthma, uncomplicated; F31.9 Bipolar disorder, unspecified; F20.9 Schizophrenia, unspecified; Z59.00 Homelessness unspecified; Z88.5 Allergy status to narcotic agent; Z79.899 Other long term (current) drug therapy; Z79.1 Long term (current) use of non-steroidal anti-inflammatories (NSAID); X58.XXXA Exposure to other specified factors, initial encounter; Y93.89 Activity, other specified; Y92.89 Other specified places as the place of occurrence of the external cause; Y99.8 Other external cause status
CPT/HCPCS: 99284

== ENCOUNTER 2024-06-15 20:23 | Emergency (ER) | payer MEDICARE, MEDICAID ==
[~2024-06-15] VITALS: Ht 157.5 cm; Wt 53.2 kg
[~2024-06-15 20:23] MED LIST changes: +HYDR100T12 PO; -HYDR100T27 PO; +IBUP-1985 PO; -MIRT-116 PO; +MIRT-142 PO; +ONDA-245 PO
[2024-06-15 21:09] LABS: BASOPHILS # (AUTO) 0.1 X10'3 (0-0.2); BASOPHILS % (AUTO) 1.1 % (0-1); EOSINOPHILS % (AUTO) 0.7 % (0-6); HEMATOCRIT 40.5 % (35.0-45.0); HEMOGLOBIN 13.6 g/dl (12.0-16.0); LYMPHOCYTES # (AUTO) 1.8 X10'3 (1.1-4.8); LYMPHOCYTES % (AUTO) 28.5 % (21-51); MEAN CORPUSCULAR HEMOGLOBIN 29.4 PG (27.0-31.0); MEAN CORPUSCULAR HGB CONC 33.6 g/dL (33.0-36.5); MEAN CORPUSCULAR VOLUME 87.4 FL (78-98); MEAN PLATELET VOLUME 9.7 FL (7.4-10.4); MONOCYTES # (AUTO) 0.5 X10'3 (0-0.9); MONOCYTES % (AUTO) 7.5 % (2-12); NEUTROPHILS # (AUTO) 3.9 X10'3 (1.8-7.7); NEUTROPHILS % (AUTO) 62.2 % (42-75); PLATELET COUNT 238 X10'3 (140-440); RED BLOOD COUNT 4.63 X10'6 (4.20-5.60); RED CELL DISTRIBUTION WIDTH 15.1 % (11.5-14.5); WHITE BLOOD COUNT 6.3 X10'3 (4.5-11.0)
[2024-06-15 21:21] LABS: ALANINE AMINOTRANSFERASE 27 U/L (12-78); ALBUMIN 3.7 G/DL (3.4-5.0); ALBUMIN/GLOBULIN RATIO 0.9 (1.1-1.5); ALKALINE PHOSPHATASE 98 IU/L (46-116); ANION GAP 10 (8-16); ASPARTATE AMINO TRANSFERASE 19 U/L (10-37); BILIRUBIN,TOTAL 0.6 MG/DL (0.1-1.0); BLOOD UREA NITROGEN 10 MG/DL (7-18); BUN/CREATININE RATIO 15.4 (10.0-20.0); CALCIUM 8.9 MG/DL (8.5-10.1); CHLORIDE 108 MMOL/L (99-107); CREATININE 0.65 MG/DL (0.40-0.90); GLUCOSE 104 MG/DL (70-104); LIPASE 22 U/L (16-77); POTASSIUM 3.5 MMOL/L (3.5-5.1); SODIUM 142 MMOL/L (135-145); TOTAL CARBON DIOXIDE 24.1 MMOL/L (24-32); TOTAL PROTEIN 7.8 G/DL (6.4-8.2); eCRCL 66 ML/MIN; eGFR > 90 ML/MIN
[2024-06-15] MEDS ORDERED: DICY10CA88 PO (23:30)
[2024-06-16] MEDS: lactulose 20gm/30ml cup PO ONE (00:03)
[2024-06-16] MEDS: ondansetron 4mg rapidly disintigrating tab PO ONE (00:03)
[2024-06-16] MEDS: dicyclomine 10 MG capsule PO ONE (00:03)
[2024-06-16 00:35] VITALS: BP 161/80; PULSE 98; RESP 16; TEMP 97.8; O2SAT 95
== END 2024-06-16 00:10 | disposition home or self-care (01) ==
LOC: ER 20:23
DX: K59.00 Constipation, unspecified (principal); R10.31 Right lower quadrant pain; I10 Essential (primary) hypertension; J45.909 Unspecified asthma, uncomplicated; F31.9 Bipolar disorder, unspecified; F20.9 Schizophrenia, unspecified; Z88.5 Allergy status to narcotic agent; Z79.899 Other long term (current) drug therapy
CPT/HCPCS: 36415; 74018; 80053; 83690; 85025; 93005; 99285

== ENCOUNTER 2024-07-12 05:47 | Emergency (ER) | payer MEDICARE, MEDICAID ==
[~2024-07-12] VITALS: Ht 154.9 cm; Wt 63.0 kg
[2024-07-12 05:50] VITALS: TEMP 97.6
[2024-07-12 07:56] LABS: ALANINE AMINOTRANSFERASE 25 U/L (12-78); ALBUMIN 3.6 G/DL (3.4-5.0); ALBUMIN/GLOBULIN RATIO 0.9 (1.1-1.5); ALKALINE PHOSPHATASE 89 IU/L (46-116); ANION GAP 11 (8-16); ASPARTATE AMINO TRANSFERASE 23 U/L (10-37); BILIRUBIN,TOTAL 0.3 MG/DL (0.1-1.0); BLOOD UREA NITROGEN 12 MG/DL (7-18); BUN/CREATININE RATIO 14.8 (10.0-20.0); CALCIUM 8.7 MG/DL (8.5-10.1); CHLORIDE 106 MMOL/L (99-107); CREATININE 0.81 MG/DL (0.40-0.90); GLUCOSE 106 MG/DL (70-104); SODIUM 141 MMOL/L (135-145); TOTAL CARBON DIOXIDE 24.2 MMOL/L (24-32); TOTAL PROTEIN 7.6 G/DL (6.4-8.2); eCRCL 51 ML/MIN; eGFR 71 ML/MIN
[2024-07-12 07:58] LABS: BASOPHILS # (AUTO) 0.1 X10'3 (0-0.2); BASOPHILS % (AUTO) 1.1 % (0-1); EOSINOPHILS # (AUTO) 0.1 X10'3 (0-0.9); EOSINOPHILS % (AUTO) 1.4 % (0-6); HEMATOCRIT 40.8 % (35.0-45.0); HEMOGLOBIN 13.7 g/dl (12.0-16.0); LYMPHOCYTES % (AUTO) 15.8 % (21-51); MEAN CORPUSCULAR HEMOGLOBIN 30.1 PG (27.0-31.0); MEAN CORPUSCULAR HGB CONC 33.6 g/dL (33.0-36.5); MEAN CORPUSCULAR VOLUME 89.7 FL (78-98); MEAN PLATELET VOLUME 9.6 FL (7.4-10.4); MONOCYTES # (AUTO) 0.5 X10'3 (0-0.9); MONOCYTES % (AUTO) 7.5 % (2-12); NEUTROPHILS # (AUTO) 4.6 X10'3 (1.8-7.7); NEUTROPHILS % (AUTO) 74.2 % (42-75); PLATELET COUNT 218 X10'3 (140-440); RED BLOOD COUNT 4.55 X10'6 (4.20-5.60); RED CELL DISTRIBUTION WIDTH 14.4 % (11.5-14.5); WHITE BLOOD COUNT 6.1 X10'3 (4.5-11.0)
[2024-07-12 08:27] LABS: POTASSIUM 4.1 MMOL/L (3.5-5.1); PRO BRAIN NATRIURETIC PEPTIDE < 30 PG/ML (0-125)
[2024-07-12] MEDS: LIDOcaine 2% Viscous 15ml cup MM ONE (08:33)
[2024-07-12] MEDS: ondansetron/PF 4mg/2ml inj IM ONE (08:33)
[2024-07-12] MEDS: mag hydrox/Alum hydrox/simeth 30ml oral suspension PO ONE (08:33)
[2024-07-12] MEDS ORDERED: ONDA-243 PO (08:56)
[2024-07-12] MEDS ORDERED: OMEP20CA15 PO (08:56)
[2024-07-12 09:20] VITALS: BP 149/74; PULSE 79; RESP 16; O2SAT 96
== END 2024-07-12 09:21 | disposition home or self-care (01) ==
LOC: ER 05:48
DX: K29.00 Acute gastritis without bleeding (principal); F20.9 Schizophrenia, unspecified; F31.9 Bipolar disorder, unspecified; I10 Essential (primary) hypertension; J45.909 Unspecified asthma, uncomplicated; F10.90 Alcohol use, unspecified, uncomplicated; F41.9 Anxiety disorder, unspecified; G62.9 Polyneuropathy, unspecified; Z88.5 Allergy status to narcotic agent; Y90.9 Presence of alcohol in blood, level not specified
CPT/HCPCS: 36415; 71045; 80053; 83880; 84484; 85025; 93005; 96372; 99285; J2405

== ENCOUNTER 2024-07-14 22:50 | Emergency (ER) | payer MEDICARE, MEDICAID ==
[~2024-07-14] VITALS: Ht 157.5 cm; Wt 58.0 kg
[~2024-07-14 22:50] MED LIST changes: +OMEP20CA15 PO; +ONDA-243 PO
[2024-07-14 23:10] VITALS: TEMP 98.1
[2024-07-15 00:01] LABS: BASOPHILS # (AUTO) 0.1 X10'3 (0-0.2); BASOPHILS % (AUTO) 1.2 % (0-1); EOSINOPHILS # (AUTO) 0.1 X10'3 (0-0.9); EOSINOPHILS % (AUTO) 1.5 % (0-6); HEMATOCRIT 40.6 % (35.0-45.0); HEMOGLOBIN 13.9 g/dl (12.0-16.0); MEAN CORPUSCULAR HEMOGLOBIN 30.2 PG (27.0-31.0); MEAN CORPUSCULAR HGB CONC 34.4 g/dL (33.0-36.5); MEAN CORPUSCULAR VOLUME 87.8 FL (78-98); MEAN PLATELET VOLUME 9.4 FL (7.4-10.4); MONOCYTES # (AUTO) 0.5 X10'3 (0-0.9); MONOCYTES % (AUTO) 6.9 % (2-12); NEUTROPHILS % (AUTO) 64.4 % (42-75); PLATELET COUNT 253 X10'3 (140-440); RED BLOOD COUNT 4.62 X10'6 (4.20-5.60); RED CELL DISTRIBUTION WIDTH 14.4 % (11.5-14.5); WHITE BLOOD COUNT 7.7 X10'3 (4.5-11.0)
[2024-07-15 00:20] LABS: ALANINE AMINOTRANSFERASE 35 U/L (12-78); ALBUMIN 3.7 G/DL (3.4-5.0); ALBUMIN/GLOBULIN RATIO 0.8 (1.1-1.5); ALKALINE PHOSPHATASE 96 IU/L (46-116); ANION GAP 12 (8-16); ASPARTATE AMINO TRANSFERASE 18 U/L (10-37); BILIRUBIN,TOTAL 0.5 MG/DL (0.1-1.0); BLOOD UREA NITROGEN 11 MG/DL (7-18); BUN/CREATININE RATIO 13.4 (10.0-20.0); CALCIUM 8.7 MG/DL (8.5-10.1); CHLORIDE 106 MMOL/L (99-107); CREATININE 0.82 MG/DL (0.40-0.90); GLUCOSE 100 MG/DL (70-104); POTASSIUM 3.5 MMOL/L (3.5-5.1); SODIUM 142 MMOL/L (135-145); TOTAL CARBON DIOXIDE 24.3 MMOL/L (24-32); TOTAL PROTEIN 8.1 G/DL (6.4-8.2); eCRCL 53 ML/MIN; eGFR 70 ML/MIN
[2024-07-15 00:21] LABS: LIPASE 32 U/L (16-77)
[2024-07-15 01:46] LABS: ETHANOL < 10 MG/DL (<10); MAGNESIUM 1.8 MG/DL (1.5-2.4)
[2024-07-15 02:43] VITALS: BP 168/93
[2024-07-15 03:24] LABS: BILIRUBIN,URINE NEGATIVE (Neg); CLARITY,URINE SLIGHTLY CLOUDY (Clear); COLOR,URINE YELLOW (Yellow); GLUCOSE, URINE NEGATIVE (Neg); KETONES,URINE NEGATIVE (Neg); LEUKOCYTE ESTERASE ,URINE SMALL (Neg); NITRITES, URINE NEGATIVE (Neg); OCCULT BLOOD,URINE NEGATIVE (Neg); PH,URINE 6.5 (4.8-8.0); PROTEIN,URINE NEGATIVE (Neg)
[2024-07-15 03:28] LABS: URINE AMPHETAMINE SCREEN NEGATIVE (Neg); URINE BARBITUATE SCREEN NEGATIVE (Neg); URINE BENZODIAZEPINES SCREEN NEGATIVE (Neg); URINE CANNABINOID SCREEN NEGATIVE (Neg); URINE COCAINE SCREEN NEGATIVE (Neg); URINE METHADONE SCREEN NEGATIVE (Neg); URINE OPIATE SCREEN NEGATIVE (Neg); URINE PHENCYCLIDINE SCREEN NEGATIVE (Neg)
[2024-07-15 03:50] LABS: UA COLLECTION TYPE CLN CATCH MIDSTREAM
[2024-07-15 03:52] LABS: MUCUS STRANDS FEW /LPF (Neg); SQUAMOUS EPITHELIAL CELL,UR MODERATE /LPF (FEW); TRANSITIONAL EPI CELLS,URINE FEW /HPF; WBC,URINE 20-30 /HPF (0-4)
[2024-07-15 03:53] LABS: BACTERIA,URINE NONE SEEN /HPF (Neg); RBC,URINE NONE SEEN /HPF (0-2)
[2024-07-15] MEDS: dicyclomine 10 MG capsule PO ONE (04:48)
[2024-07-15 04:50] VITALS: PULSE 80; RESP 18; O2SAT 97
== END 2024-07-15 04:54 | disposition home or self-care (01) ==
LOC: ER 22:51
DX: R10.84 Generalized abdominal pain (principal); I10 Essential (primary) hypertension; J45.909 Unspecified asthma, uncomplicated; F20.9 Schizophrenia, unspecified; F31.9 Bipolar disorder, unspecified; G62.9 Polyneuropathy, unspecified; F41.0 Panic disorder [episodic paroxysmal anxiety]; Z56.0 Unemployment, unspecified; Z88.5 Allergy status to narcotic agent; Z79.899 Other long term (current) drug therapy
CPT/HCPCS: 36415; 80053; 80305; 81001; 83690; 83735; 85025; 87088; 99283; G0480; 80320

== ENCOUNTER 2024-12-23 20:46 | Emergency (ER) | payer MEDICARE, MEDICAID ==
[~2024-12-23] VITALS: Ht 154.9 cm; Wt 55.0 kg
--- NOTE | 2024-12-23 20:53 | ELECTROCARDIOGRAPH REPORT ---
[facility] Test Date: 2024-12-23 Test Time: 20:51:09 Pat Name: ANNY PALMA Department: EMERGENCY ROOM Room: Gender: F Leather Piece Inspector: RONNY : 1955 Requested By: RATNA KING Order Number: [id number] Reading MD: Dr. Vasquez Nolasco Measurements Intervals [place] Rate: 75 P: 23 IN: 158 QRS: 24 QRSD: 91 T: 49 QT: 400 QTc: 447 Interpretive Statements Atrial-paced complexes Electronically Signed On 12-25-2024 21:44:[address] Vasquez Nolasco Please click the below link to view image of tracing.
[2024-12-23 21:04] LABS: BASOPHILS # (AUTO) 0.1 X10'3 (0-0.2); BASOPHILS % (AUTO) 1.1 % (0-1); EOSINOPHILS % (AUTO) 0.5 % (0-6); HEMATOCRIT 39.5 % (35.0-45.0); HEMOGLOBIN 13.7 g/dl (12.0-16.0); LYMPHOCYTES # (AUTO) 2.3 X10'3 (1.1-4.8); LYMPHOCYTES % (AUTO) 27.9 % (21-51); MEAN CORPUSCULAR HEMOGLOBIN 29.7 PG (27.0-31.0); MEAN CORPUSCULAR HGB CONC 34.8 g/dL (33.0-36.5); MEAN CORPUSCULAR VOLUME 85.3 FL (78-98); MEAN PLATELET VOLUME 9.6 FL (7.4-10.4); MONOCYTES # (AUTO) 0.5 X10'3 (0-0.9); MONOCYTES % (AUTO) 6.5 % (2-12); NEUTROPHILS # (AUTO) 5.3 X10'3 (1.8-7.7); PLATELET COUNT 241 X10'3 (140-440); RED BLOOD COUNT 4.63 X10'6 (4.20-5.60); RED CELL DISTRIBUTION WIDTH 14.6 % (11.5-14.5); WHITE BLOOD COUNT 8.2 X10'3 (4.5-11.0)
[2024-12-23 21:18] LABS: ALANINE AMINOTRANSFERASE 25 U/L (12-78); ALBUMIN 3.7 G/DL (3.4-5.0); ALKALINE PHOSPHATASE 99 IU/L (46-116); ANION GAP 13 (8-16); ASPARTATE AMINO TRANSFERASE 18 U/L (10-37); BLOOD UREA NITROGEN 15 MG/DL (7-18); BUN/CREATININE RATIO 21.1 (10.0-20.0); CHLORIDE 103 MMOL/L (99-107); CREATININE 0.71 MG/DL (0.40-0.90); GLUCOSE 93 MG/DL (70-104); POTASSIUM 3.2 MMOL/L (3.5-5.1); SODIUM 137 MMOL/L (135-145); TOTAL CARBON DIOXIDE 20.9 MMOL/L (24-32); TOTAL PROTEIN 7.4 G/DL (6.4-8.2); eCRCL 58 ML/MIN; eGFR 82 ML/MIN
[2024-12-23 21:25] LABS: PRO BRAIN NATRIURETIC PEPTIDE < 30 PG/ML (0-125)
--- NOTE | 2024-12-23 22:45 | RADIOLOGY REPORT ---
CHEST RADIOGRAPH Indication: CP Technique: Single frontal view of the chest was obtained Comparison: DI CHEST,SINGLE VIEW on DOS: 07/12/24 FINDINGS: Lines and Tubes: None Lungs: Clear Pleura: No effusion. No pneumothorax. Cardiomediastinal contours: Unremarkable Bones: Unremarkable IMPRESSION: Clear lungs.
--- NOTE | 2024-12-24 01:33 | Physician Documentation ---
History of Present Illness ~ Chief Complaint: Shortness of Breath Stated Complaint: SOB Time Seen by MD: 01:25 Primary Medical Doctor: none Mode of Arrival: EMS, Stretcher [facility] Patient presents to the emergency room feeling short of breath. She has history of asthma as well as anxiety. She is unsure if this is anxiety or something else. No fevers. Medication Reconciliation Allergies: Coded Allergies: codeine (Verified Allergy, Unknown, VOMITING., 12/23/24) Scheduled Amlodipine Besylate (Norvasc), 1 TAB PO DAILY, (Reported) Clonidine HCl (Clonidine HCl), 1 TAB PO HS, (Reported) Cyclobenzaprine* (Cyclobenzaprine*), 1 TAB PO Q8H Cyclobenzaprine* (Cyclobenzaprine*), 1 TAB PO TID Gabapentin (Gabapentin), 1 CAP PO TID, (Reported) Hydralazine HCl (Hydralazine HCl), 1 TAB PO HS Lorazepam (Ativan), 1 MG PO Q8H PRN ANXIETY Mirtazapine (Remeron), 2 TAB PO HS, (Reported) Olanzapine (Olanzapine), 1 TAB PO HS Omeprazole (Omeprazole), 1 CAP PO DAILY Ondansetron 8mg ODT (Ondansetron Odt), 1 TAB PO Q8H Quetiapine Fumarate* (Seroquel*), 1 TAB PO HS, (Reported) [olanzapine], 5 MG PO BID, (Reported) Scheduled PRN Ibuprofen (Ibuprofen), 1 TAB PO Q8H PRN for pain ONDANSETRON ODT 4mg tablet (Ondansetron Odt), 4 MG PO BID PRN for nausea/vomiting Past Medical History Past Medical History: Peripheral Neuropathy, Hypertension, Asthma, Constipation, Anxiety, Bipolar, Panic Disorder, Schizophrenia Past Surgical History: no surgical history Patient History: Patient reports no known family medical history. Alcohol Use: Heavy Drug Use: none Lives with: Family Lives In: Home Occupation: unemployed Review of Systems ROS All review of systems negative except as per HPI Physical Exam Vital Signs: Temperature: 98.1, Source: Oral, Heart Rate: 78, Respiratory Rate: 16, BP: 157/85, Pulse Oximetry: 99, Weight: 55.000 Oxygen Flow Rate: 0 Physical Exam General: Patient is awake, alert, oriented x4 in no acute distress Head: Normocephalic and atraumatic. Eyes: Conjunctival normal. EOMI. PERRL. ENT: Mucous membranes moist. Neck: Supple, trachea is midline. Chest: Clear to auscultation bilaterally without rales, rhonchi, or wheezes. There is no accessory muscle use or retractions. Cardiac: RRR without murmurs, gallops, or rubs. Extremities: Normal strength. Normal range of motion. No deformities or edema. No calf tenderness to palpation Progress Results/Orders Results/Orders Orders - CASPER MEADOWS MD Chest,Single View (12/23/24 20:49) Monitor (12/23/24 20:49) Saline Lock (12/23/24 20:49) Oxygen (12/23/24 20:49) Completed Orders - CASPER MEADOWS MD Chest,Single View (12/23/24 20:49) Cbc/Diff (12/23/24 20:49) PBNP (12/23/24 20:49) Electrocardiogram (12/23/24 20:49) CMP (12/23/24 20:49) Hs Troponin I W Calculations (12/23/24 20:49) Hs Troponin I W Calculations (12/23/24 22:49) Hs Troponin I W Calculations (12/23/24 23:49) Vital Signs 12/23/24 12/23/24 12/23/24 12/23/24 20:55 21:00 21:30 23:02 Temp 97.8 Pulse 74 70 Resp 18 20 18 18 B/P (MAP) 141/66 133/66 (88) Pulse Ox 98 99 O2 Flow Rate 0 0 12/24/24 00:52 Temp 98.1 Pulse 78 Resp 16 B/P (MAP) 157/85 (109) Pulse Ox 99 O2 Flow Rate 0 Laboratory Tests Test 12/23/24 20:55 12/23/24 22:33 12/23/24 23:46 White Blood Count 8.2 Red Blood Count 4.63 Hemoglobin 13.7 Hematocrit 39.5 Mean Corpuscular Volume 85.3 Mean Corpuscular Hemoglobin 29.7 Mean Corpuscular Hemoglobin Concent 34.8 Red Cell Distribution Width 14.6 H Platelet Count 241 Mean Platelet Volume 9.6 Neutrophils (%) (Auto) 64.0 Lymphocytes (%) (Auto) 27.9 Monocytes (%) (Auto) 6.5 Eosinophils (%) (Auto) 0.5 Basophils (%) (Auto) 1.1 H Neutrophils # (Auto) 5.3 Lymphocytes # (Auto) 2.3 Monocytes # (Auto) 0.5 Eosinophils # (Auto) 0.0 Basophils # (Auto) 0.1 CBC Comment Sodium Level 137 Potassium Level 3.2 L Chloride Level 103 Carbon Dioxide Level 20.9 L Anion Gap 13 Blood Urea Nitrogen 15 Creatinine 0.71 Estimated GFR/1.73 m2 82 BUN/Creatinine Ratio 21.1 H Glucose Level 93 Calcium Level 9.0 Total Bilirubin 1.0 Aspartate Amino Transf (AST/SGOT) 18 Alanine Aminotransferase (ALT/SGPT) 25 Alkaline Phosphatase 99 Troponin I High Sensitivity 5 6 6 Pro-B-Type Natriuretic Peptide < 30 Total Protein 7.4 Albumin 3.7 Globulin 3.7 Albumin/Globulin Ratio 1.0 L Chemistry Comments Troponin I High Sens Percent Delta 20 0 Troponin I Hi Sens Absolute Change 1 0 EKG/XRAY/CT/US/VASC/MRI Chest X-Ray : Additional Comments Exam: CHEST,SINGLE VIEW CHEST RADIOGRAPH Indication: CP Technique: Single frontal view of the chest was obtained Comparison: DI CHEST,SINGLE VIEW on DOS: 07/12/24 FINDINGS: Lines and Tubes: None Lungs: Clear Pleura: No effusion. No pneumothorax. Cardiomediastinal contours: Unremarkable Bones: Unremarkable IMPRESSION: Clear lungs. Medical Decision Making Findings Patient presents to the emergency room with subjective shortness of breath. Differentials include but are not limited to pneumonia, asthma, pulmonary embolism, CHF, anxiety therefore emergent labs and imaging ordered. Chest x-ray is reassuring. Patient continues state she feels short of breath and she is saturating 99% on room air. No evidence of heart failure. No wheezing upon auscultation. No calf tenderness and no tachycardia or hypoxia and he had not feel patient is suffering from pulmonary embolism. Consideration of anxiety. Departure Disposition: HOME / SELF CARE / HOMELESS Impression: Primary Impression: Dyspnea Condition: Stable Discharge Instructions: Shortness of Breath, Adult, [id number] Referrals: NO PRIMARY CARE PROVIDER (PCP) Education Educated: Patient Educated regarding: need for follow up Signature Scribe Signature: No scribe Attestation: The note accurately reflects work and decisions made by me.Casper Meadows MD 12/24/24 01:32 CASPER MEADOWS MD December 24, 2024 01:33
[2024-12-24 01:38] VITALS: BP 151/80; PULSE 78; RESP 16; TEMP 98.2; O2SAT 99
[2024-12-24] MEDS ORDERED: ALBU8HFA PO (19:33)
== END 2024-12-24 01:41 | disposition home or self-care (01) ==
LOC: ER 20:47
DX: R06.00 Dyspnea, unspecified (principal); F20.9 Schizophrenia, unspecified; F31.9 Bipolar disorder, unspecified; I10 Essential (primary) hypertension; J45.909 Unspecified asthma, uncomplicated; Z88.5 Allergy status to narcotic agent; Z88.8 Allergy status to other drugs, medicaments and biological substances
CPT/HCPCS: 36415; 71045; 80053; 83880; 84484; 85025; 93005; 99285

== ENCOUNTER 2024-12-24 15:09 | Emergency (ER) | payer MEDICARE, MEDICAID ==
[~2024-12-24] VITALS: Ht 157.5 cm; Wt 54.9 kg
[2024-12-24 15:25] VITALS: BP 164/75
--- NOTE | 2024-12-24 15:52 | Physician Documentation ---
History of Present Illness ~ Chief Complaint: Shortness of Breath Stated Complaint: SOB Time Seen by MD: 18:48 Primary Medical Doctor: none HPI 69 Year old female with a history of asthma and schizophrenia presents to the emergency department by EMS with report of shortness of breath. Patient reports shortness breath began while watching TV, patient reports no cough or wheezing. Medication Reconciliation Allergies: Coded Allergies: codeine (Verified Allergy, Unknown, VOMITING., 12/23/24) Scheduled Amlodipine Besylate (Norvasc), 1 TAB PO DAILY, (Reported) Clonidine HCl (Clonidine HCl), 1 TAB PO HS, (Reported) Cyclobenzaprine* (Cyclobenzaprine*), 1 TAB PO Q8H Cyclobenzaprine* (Cyclobenzaprine*), 1 TAB PO TID Gabapentin (Gabapentin), 1 CAP PO TID, (Reported) Hydralazine HCl (Hydralazine HCl), 1 TAB PO HS Lorazepam (Ativan), 1 MG PO Q8H PRN ANXIETY Mirtazapine (Remeron), 2 TAB PO HS, (Reported) Olanzapine (Olanzapine), 1 TAB PO HS Omeprazole (Omeprazole), 1 CAP PO DAILY Ondansetron 8mg ODT (Ondansetron Odt), 1 TAB PO Q8H Quetiapine Fumarate* (Seroquel*), 1 TAB PO HS, (Reported) [olanzapine], 5 MG PO BID, (Reported) Scheduled PRN Ibuprofen (Ibuprofen), 1 TAB PO Q8H PRN for pain ONDANSETRON ODT 4mg tablet (Ondansetron Odt), 4 MG PO BID PRN for nausea/vomiting albuterol inhaler (Pro-Air Inhaler), 1-2 PUFFS PO Q4H PRN for shortness of breath Past Medical History Past Medical History: Peripheral Neuropathy, Hypertension, Asthma, Constipation, Anxiety, Bipolar, Panic Disorder, Schizophrenia Past Surgical History: no surgical history Patient History: Patient reports no known family medical history. Alcohol Use: Heavy Drug Use: none Lives with: Family Lives In: Home Occupation: unemployed Review of Systems ROS Shortness of breath as stated above in the HPI, otherwise all systems are reviewed and negative. Physical Exam Vital Signs: Temperature: 98.0, Source: Temporal, Heart Rate: 80, Respiratory Rate: 16, BP: 164/75, Pulse Oximetry: 99, Weight: 54.900 Oxygen Flow Rate: 0 Physical Exam VITALS: Reviewed and as above. GENERAL: Alert, nontoxic appearing, no apparent distress. RESPIRATORY: No increased work of breathing, no respiratory distress, speaking in full clear sentences, clear lung sounds in all jean, no wheezing no stridor CV: Regular rate and rhythm no murmur Progress Results/Orders Results/Orders Orders - JUDY SOLORIO Svn Treatment (12/24/24 19:27) Completed Orders - JUDY SOLORIO Acetaminophen 325mg Tablet (Tylenol Tabl (12/24/24 19:30) Albuterol 2.5mg/3ml Nebule (Proventil 2. (12/24/24 19:30) Medications Received in ER Medications (Trade) Dose Ordered Sig/Irving Route PRN Reason Start Time Stop Time Status Last Admin Dose Admin (Tylenol tablet) 650 mg ONCE ONCE PO 12/24/24 19:30 12/24/24 19:31 DC 12/24/24 19:40 650 MG (Proventil 2.5 MG/3ML nebule) 2.5 mg ONCE ONCE NEB 12/24/24 19:30 12/24/24 19:31 DC 12/24/24 19:36 2.5 MG Vital Signs 12/24/24 12/24/24 12/24/24 12/24/24 15:25 18:45 19:37 19:42 Temp 98.0 98.0 Pulse 80 78 Resp 16 20 8 B/P (MAP) 164/75 Pulse Ox 99 94 O2 Delivery Room Air* O2 Flow Rate 0 0 FiO2 N/A Medical Decision Making Findings MSE performed in triage and patient returned to ED lobby by nursing staff This 69-year-old female history of schizophrenia and asthma presented with report of shortness of breath however speaking full sentences without any increased work of breathing and clear lung sounds on exam, patient was seen in the emergency department within the last 24 hours for the same concern without acute findings and patient reported no change in symptoms. Of note patient did report she does not have a rescue inhaler at home and believe part of the reason for her visit is to receive a rescue inhaler prescription. Patient did additionally report mild headache and was provided a dose of Tylenol. Patient was ambulated through the department by nursing staff while on pulse oximetry without change in SpO2, SpO2 remained at 98% for entire time of ambulation and patient reported no increased shortness of breath and nursing staff reported patient had no increased work of breathing. Patient was provided an albuterol breathing treatment reporting improvement in symptoms. Patient's vital signs are stable with no evidence of hypoxia and benign physical exam, she is appropriate for outpatient follow up. Differential Dx:Considerations: Include: anxiety, asthma, CHF, COPD, panic attack, pneumonia, pneumonitis, sinusitis, upper resp. infection Departure Disposition: HOME / SELF CARE / HOMELESS Impression: Primary Impression: Shortness of breath Condition: Improved Discharge Instructions: Asthma, Adult, [id number] Additional Instructions: Please use the prescribed albuterol inhaler as needed for shortness of breath of wheezing. Please follow up with your primary care provider in the next few days. Please return to the emergency department for any new or worsening concerning symptoms. Referrals: NO PRIMARY CARE PROVIDER (PCP) Prescriptions albuterol inhaler (Pro-Air Inhaler) 8.5 Gm Inhaler 1-2 PUFFS PO Q4H PRN for shortness of breath, #1 INH Prov: JUDY SOLORIO 12/24/24 Education Educated: Patient Educated regarding: diagnosis, treatment, prognosis, need for follow up Signature Scribe Signature: No scribe Attestation: The note accurately reflects work and decisions made by me.TRISTAN Holly 12/24/24 23:04 JUDY SOLORIO December 24, 2024 15:52
[2024-12-24] MEDS ORDERED: ALBU8HFA PO (19:33)
[2024-12-24] MEDS: albuterol 2.5 MG/3 ML nebule NEB ONE (19:36)
[2024-12-24 19:37] VITALS: PULSE 78; RESP 8; O2SAT 94
[2024-12-24] MEDS: acetaminophen 325mg tablet PO ONE (19:40)
[2024-12-24 19:42] VITALS: TEMP 98
== END 2024-12-24 19:47 | disposition home or self-care (01) ==
LOC: ER 15:09
DX: R06.02 Shortness of breath (principal); F20.9 Schizophrenia, unspecified; F31.9 Bipolar disorder, unspecified; I10 Essential (primary) hypertension; J45.909 Unspecified asthma, uncomplicated; Z88.5 Allergy status to narcotic agent; Z88.8 Allergy status to other drugs, medicaments and biological substances
CPT/HCPCS: 94640; 99283